=== PATIENT | female | born 1960 | race Caucasian/White ===

== ENCOUNTER 2016-07-18 10:42 | Inpatient (IN) | payer MEDICARE, OTHER ==
[~2016-07-18] VITALS: Ht 175.3 cm; Wt 82.8 kg
[2016-07-18] MEDS ORDERED: IPRATROPIUM 0.5MG/ALBUTEROL 2.5MG INH SOL UD 3ML (DUONEB)(J7620) As Ordered ONE (11:17)
[2016-07-18 11:19] LABS: ABG BASE EXCESS 7.4 (-2.0-2.0); ABG DEVICE NASAL CANN; ABG HCO3 37.3 MEQ/L (22.0-26.0); ABG PARTIAL PRESSURE O2 68.1 mmHg (75.0-100.0); ABG STANDARD HCO3 31.1 MEQ/L (22.0-26.0); ABG TOTAL CO2 39.7 MEQ/L (22.0-29.0); ABG pH (ARTERIAL) 7.302 UNITS (7.350-7.450)
[2016-07-18 11:23] LABS: ABG PARTIAL PRESSURE CO2 77.2 mmHg (35.0-45.0)
[2016-07-18] MEDS ORDERED: methylPREDNISolone INJ 125 MG/2 ML VIAL (J2930) As Ordered ONE (11:33)
[2016-07-18] MEDS ORDERED: LORazepam 2 MG/ML VIAL (J2060) As Ordered ONE (11:35)
--- NOTE | 2016-07-18 11:36 | REP ---
SINGLE VIEW CHEST: AP portable view of the chest is performed and compared to prior study of 01/04/2016. I see no acute infiltrate with no change since prior study. Heart is upper limits of normal in size. Mediastinal silhouette is unchanged. The visualized osseous structures appear intact. IMPRESSION: No acute infiltrate. Signed by Henrik Singh MD 07/18/2016 05:20 P
[2016-07-18 11:39] LABS: BASO # 0.1 K/mm3 (0.0-0.2); BASO % 0.7 % (0.0-1.0); EOS # 0.1 K/mm3 (0.0-0.50); EOS % 1.2 % (0.0-3.0); LARGE UNSTAINED CELL # 0.2 K/mm3 (0.0-0.4); LARGE UNSTAINED CELL % 1.6 % (0.0-4.0); LYMPH # 1.9 K/mm3 (1.5-4.5); LYMPH % 15.3 % (24.0-44.0); MEAN CORPUSCULAR HEMOGLOBIN 29.2 pg (27.0-33.0); MEAN CORPUSCULAR HGB CONC 32.4 g/dl (32.0-36.5); MEAN CORPUSCULAR VOLUME 90.1 fl (80.0-96.0); MONO # 0.8 K/mm3 (0.0-0.8); MONO % 7.1 % (0.0-5.0); NEUTROPHILS # 8.4 K/mm3 (1.8-7.7); PLATELET COUNT, AUTOMATED 232 k/mm3 (150-450); RED CELL DISTRIBUTION WIDTH 14.5 % (11.5-14.5); WHITE BLOOD COUNT 11.3 K/mm3 (4.0-10.0)
[2016-07-18 12:11] LABS: ANION GAP 1 MEQ/L (8-16); BLOOD UREA NITROGEN 18 MG/DL (7-18); CALCIUM LEVEL 9.9 MG/DL (8.5-10.1); CARBON DIOXIDE LEVEL 45 MEQ/L (21-32); CHLORIDE LEVEL 97 MEQ/L (98-107); CREATININE FOR GFR 0.53 MG/DL (0.55-1.02); GLOMERULAR FILTRATION RATE > 60.0 (>51); GLUCOSE, FASTING 90 MG/DL (70-105); POTASSIUM SERUM 3.8 MEQ/L (3.5-5.1); SODIUM LEVEL 143 MEQ/L (136-145)
[2016-07-18] MEDS ORDERED: ZONI50CA3 PO (12:30)
[2016-07-18] MEDS ORDERED: ADV250INH INH (12:30)
[2016-07-18] MEDS ORDERED: AZIT250T3 PO (12:30)
[2016-07-18] MEDS ORDERED: IPRASOL4 INH (12:30)
[2016-07-18] MEDS ORDERED: METH4PACK PO (12:30)
[2016-07-18] MEDS ORDERED: TRAM50TA2 PO (12:30)
[2016-07-18] MEDS ORDERED: GABA600T PO (12:30)
[2016-07-18] MEDS ORDERED: DILT120C PO (12:30)
[2016-07-18] MEDS ORDERED: CEFD1CAP8 PO (12:30)
[2016-07-18] MEDS ORDERED: LevoFLOXacin(LEVAQUIN)500 MG/100 ML BAG (J1956) As Ordered ONE ×2 (12:31→12:33)
[2016-07-18] MEDS ORDERED: ONDANSETRON 4MG/2ML VIAL (J2405) IV PRN (12:45)
[2016-07-18] MEDS ORDERED: IPRATROPIUM 0.5MG/ALBUTEROL 2.5MG INH SOL UD 3ML (DUONEB)(J7620) NEB PRN (12:45)
--- NOTE | 2016-07-18 13:36 | HPE ---
DATE OF ADMISSION: 07/18/2016 PRIMARY CARE PROVIDER: NEERAJ Burgess, [facility]. WINDOW ASSEMBLER: Dr. Ny CHIEF COMPLAINT: Increased shortness of breath, dyspnea on exertion. HISTORY OF PRESENT ILLNESS: 56-year-old female recently admitted and discharged from [facility] yesterday for similar symptoms, was placed on cefdinir and Zithromax as well as prednisone taper for her chronic obstructive pulmonary disease (COPD) exacerbation. She has an underlying history of COPD/emphysema which her daughter informs me is end-stage and she uses 2 liters of oxygen at home. She has had increasing shortness of breath, dyspnea on exertion for the last 7-10 days. The simplest tasks make her short of breath. She states just getting dressed or walking across the floor causes increased difficulty for her. She has had an intermittent productive cough with no blood. No fevers, chills or rigors. She has had some vague chest discomfort with no substernal chest pain. No nausea, vomiting, no diaphoresis. PAST MEDICAL HISTORY: 1. COPD/emphysema. 2. Gallstones 3. Gastroesophageal reflux disease (GERD). 4. Headaches. 5. Hypertension. 6. Nerve damage. PAST SURGICAL HISTORY: 1. Tonsillectomy. 2. Appendectomy. 3. Spinal fusion. 4. Hip replacement. 5. Hernia repair. 6. Hysterectomy. 7. Laminectomy. 8. Partial removal of small bowel. SOCIAL HISTORY: She quit smoking in March after being a pack to two pack a day smoker for several years. No alcohol. No recent travel. No sick contacts. FAMILY HISTORY: Noncontributory. ALLERGIES: No known drug allergies. HOME MEDICATIONS: Include: - home oxygen 2 liters per his cannula per minute - DuoNebs three to four times daily - prednisone 60 mg daily - gabapentin 600 mg daily Mediation reconciliation is pending with the clinical pharmacy manager currently. REVIEW OF SYSTEMS: CONSTITUTIONAL: She denies fevers, chills, or rigors. No change in appetite. HEENT: No headache, lightheadedness, dizziness, blurry vision, double vision or tinnitus. No difficulty with speech or swallow. PULMONARY: Increased shortness of breath, dyspnea on exertion, productive sputum but no hemoptysis. End-stage lung disease per the patient's family. CARDIOVASCULAR: She denies any substernal chest pain. No paroxysmal nocturnal dyspnea (PND), orthopnea, but she does have quite a bit of dyspnea on exertion. No prior history of congestive heart failure. GASTROINTESTINAL (GI): No nausea, vomiting, diarrhea. Bowel movements are regular. She denies hematochezia or melena. GENITOURINARY (): No dysuria, frequency or hematuria. MUSCULOSKELETAL: No muscle, joint pain, erythema or swelling. NEUROLOGIC: No paresthesias or paralysis. LYMPHATICS: No lumps, bumps, swelling in the neck, axilla or groin. No night sweats. No weight loss. ENDOCRINE: Negative for diabetes. Negative thyroid disorder. HEMATOLOGY: Negative for bleeding or bruising disorder. No prior history of venothromboembolism. ONCOLOGY: No given history of cancer. PSYCHIATRIC: No history of depression or anxiety. No history of audiovisual hallucinations. 10-point review of systems complete. Pertinent positives are listed. PHYSICAL EXAMINATION: Temperature is 96.6, respiratory rate is 28, pulse is 111, blood pressure is 148/96, SpO2 is currently 92% on BiPAP. HEENT: Head is atraumatic, normocephalic. Eyes pupils equal, round and reactive to light and accommodation. Throat clear. Mucosal membranes moist. NECK: Supple with no JVD. No carotid bruits. No thyromegaly. LUNGS: Diminished breath sounds bilaterally. No rhonchi. Intermittent wheeze. Does appear to be slightly worse on the left. HEART: Regular rate and rhythm. ABDOMEN: Soft, obese, nontender. EXTREMITIES: No edema. No calf tenderness. NEURO: Cranial nerves II through XII grossly intact. No motor sensory deficits noted. LABS AND DIAGNOSTICS: Chest x-ray - lung queen appear to be clear, hyperinflated. No cardiomegaly. No signs of infiltrate or congestion. 12 lead EKG sinus tach. No acute ST-T wave abnormalities. White count is 11.3, hemoglobin 15.3, platelets 232. Sodium 143, potassium 3.8, chloride 97, bicarb 45, anion gap 1, BUN is 18, creatinine 0.53, glucose is 90, lactic acid 0.9. CK is 42, CK-MB 3.9. Troponin I is less than 0.02. BNP is 49.6. Blood gas shows a pH 7.302, pCO2 77.2, pO2 is 68.1. Blood cultures are pending times two. IMPRESSION: Ms. Laparr is a pleasant 56-year-old female with acute on chronic hypoxic respiratory failure with underlying history of COPD/emphysema and is oxygen dependent at home. She will need to be admitted to the intensive care unit (ICU) on BiPAP and telemetry. I did speak to Dr. Hendricks who is kind enough to consult on BiPAP management and will need to try to obtain records from Dr. Ny. PROBLEM LIST: 1. Acute on chronic hypoxic respiratory failure. 2. COPD exacerbation, oxygen dependent at home. 3. Hypertension. 4. GERD. 5. Neuropathy. PLAN: Admit to ICU on telemetry and BiPAP. Per Dr. Raj Rodriguez, Levaquin and DuoNebs. Continue on her home medications. Will switch her antibiotics to Levaquin. Request the office notes from Ander Mena and Dr. Ny's office. Deep vein thrombosis (DVT) prophylaxis on heparin and request Dr. Hendricks to see the patient. Prognosis is guarded at this point. I did have a brief discussion regarding advance directives. She currently wishes to be a FULL CODE.
--- NOTE | 2016-07-18 15:05 | EDDOCDS ---
Nurse's Notes [facility] Name: Halima Atkins Age: 56 yrs Sex: Female : 1960 Arrival Date: 07/18/2016 Time: 10:42 Bed 4 Private MD: ELIZABETH CAM Diagnosis: Respiratory failure, unspecified with hypercapnia Presentation: 07/18 10:48 Presenting complaint: Patient states: Chest pain and SOB began on 07/09/16 [address] discharged yesterday. Adult Sepsis Screening: The patient does not have new or worsening altered mentation. Patient has a respiratory rate of greater than or equal to 22 (1 point). Systolic blood pressure is greater than 100. Patient has a qSOFA score of 0- Negative Sepsis Screen. Suicide/Homicide risk assessment- the patient denies having any suicidal and/or homicidal ideations and does not present with any other emotional, behavioral or mental health complaints. Status: Patient is not a imaging services director or dependent. Transition of care: patient was not received from another setting of care. 10:48 Method Of Arrival: Walkin/Carried/Asstd [facility] 10:48 Acuity: MADALYN Level 2 [facility] Triage Assessment: 10:51 General: Appears distressed, Behavior is appropriate for age, cooperative. Pain: b1 Location: head and chest Pain currently is 10 out of 10 on a pain scale. HIV screening NA for this visit Offered previously. Respiratory: Onset: The symptoms/episode began/occurred gradually, Respiratory effort is labored. Historical: - Allergies: no known allergies; - Home Meds: 1. 2L NC 2. DuoNeb 0.5 mg-3 mg(2.5 mg base)/3 mL Inhl nebu 3 mL 4 times per day 3. Prednisone 60 mg Oral once daily 4. gabapentin 600 mg Oral tab 1 tab daily - PMHx: COPD; Emphysema; Gallstones; GERD; Headaches; Hypertension; nerve damage; - PSHx: Tonsillectomy; Appendectomy; Spinal Fusion; Hip Replacement; Hernia repair; Hysterectomy; Laminectomy; Partial Removal of Small Bowel; - Social history: Smoking status: Patient states former smoker of tobacco. No barriers to communication noted, The patient speaks fluent Vietnamese, Speaks appropriately for age. - Family history: No immediate family members are acutely ill. - : The pt / caregiver states he / she is not on anticoagulants. Home medication list is obtained from the patient. - Exposure Risk Screening:: None identified. Screenin:28 Screening information is obtained from the patient. Fall risk: No risks identified. hs1 Assistance ADL's: requires no assistance with activities of daily living. Abuse/DV Screen: The patient / caregiver reports he/she is: not in a situation that causes fear, pain or injury. Nutritional screening: No deficits noted. Advance Directives: There is no active DNR order. home support is adequate. Assessment: 11:25 General: Appears in no apparent distress, Behavior is anxious. Pain: Denies pain. hs1 Cardiovascular: Rhythm is sinus rhythm No ectopy. Cardiovascular: Capillary refill is sluggish Chest pain is denied. Respiratory: Airway is patent Respiratory effort is labored, respiratory in to assist patient onto BiPap. Breath sounds are diminished bilaterally. Breath sounds with wheezes bilaterally. Derm: Skin is normal. 12:25 General: Appears in no apparent distress, Behavior is appropriate for age, cooperative, hs1 Pt resting Zithromax administered at present per order. Pt complaining of slight headache 09/21 and MD [facility] aware. . 13:20 General: Appears in no apparent distress, Behavior is appropriate for age, cooperative, hs1 pt asking what happened to her and she was told that she was hypercarbic and that's why she doesn't remember much when she first got here. Pt aware of recent transfer to floor. . 14:37 General: Appears in no apparent distress, comfortable, Behavior is appropriate for age, hs1 cooperative, Pt is asking to use restroom before admission to floor. Pt being assisted to bedside commode by aide. Daughter present at bedside and no other needs noted. . 15:00 General: Appears Pt refusing BIPAP at present until heading upstairs. Pt accomodated hs1 with bedpan and then commode and then patient took mask off and refused mask until ICU. Pt asking for something to drink and medication for headache. . Vital Signs: 10:44 BP 148 / 96; Pulse 111; Resp 28 S; Temp 96.6; Pulse Ox 88% on 3 lpm NC; Weight 88.45 kg dd6 (R); Height 5 ft. 9 in. (175.26 cm) (R); Pain 7/10; 11:18 BP 138 / 96 (auto/); hs1 11:19 Pulse 100 MON; Pulse Ox 94% ; hs1 13:54 BP 120 / 77 (auto/); hs1 13:54 Pulse 96 MON; Pulse Ox 94% on BiPAP; hs1 14:24 BP 140 / 102 (auto/); hs1 14:24 Pulse 96 MON; Resp 22; Temp 98.9(T); Pulse Ox 94% ; Pain 3/10; hs1 10:44 Body Mass Index 28.80 (88.45 kg, 175.26 cm) dd6 Vitals: 10:44 Log In Time: July 18, 2016 at 10:42. dd6 ED Course: 10:43 Patient visited by Vincenzo Plaza PCA. dd6 10:43 NO PRIMARY PHYSICIAN, . is Private Physician. dd6 10:43 Patient moved to Waiting dd6 10:44 BODY, ELIZABETH is Private Physician. dd6 10:48 Patient visited by Andrey Vazquez, CRYSTAL. mlb1 10:49 Triage Initiated mlb1 10:56 Patient moved to 19 mlb1 11:00 Brittanie Myles MD is Attending Physician. sd1 11:00 Patient visited by Brittanie Myles MD. sd1 11:12 Patient moved to 4 jlf 11:17 -Arterial Blood Gas Sent. kt1 11:21 Patient visited by Savita Turner PCA. jlf 11:21 EKG done. (by ED staff). Reviewed by Brittanie Myles MD. jlf 11:22 Patient visited by Savita Turner PCA. jlf 11:33 Inserted saline lock: 18 gauge in left antecubital area and blood collected. The mb9 patient tolerated the procedure well. 11:53 Patient visited by Savita Turner PCA. jlf 11:53 Chest, 1 View Returned. EDMS 12:17 Patient visited by Savita Turner PCA. jlf 12:22 Karlos Madison DO is Hospitalizing Provider. sd1 12:28 The patient / caregiver is instructed regarding the plan of care and ED course. hs1 12:32 Written Provider Order was scanned into Snapstream and attached to record. lbd 12:46 BLOOD CULTURES Sent. hs1 14:05 [facility] [place] [facility] Payment Agreement was scanned into Snapstream and attached to record. mm15 14:39 No procedures done that require assistance. hs1 Administered Medications: 11:17 Drug: Albuterol-Ipratropium 1 neb [ipratropium-albuterol 0.5 mg-3 mg(2.5 mg base)/3 mL kt1 nebulization soln (1 neb)] Route: Nebulizer; 11:22 Follow up: Response: Nebulizer completed kt1 11:40 Drug: Solu-MEDROL 125 mg [Solu-Medrol 500 mg intravenous solution (125 mg)] Route: IVP; hs1 Site: left antecubital; 11:40 Drug: LORazepam 1 mg [lorazepam 2 mg/mL injection solution (0.5 mL)] Route: IVP; Site: hs1 left antecubital; 12:15 Drug: Albuterol-Ipratropium 1 neb [ipratropium-albuterol 0.5 mg-3 mg(2.5 mg base)/3 mL kt1 nebulization soln (1 neb)] Route: Nebulizer; 12:46 Drug: levofloxacin 500 mg [levofloxacin 500 mg/100 mL in 5 % dextrose intravenous hs1 piggyback] Route: IVPB; Infused Over: 60 mins; Site: left antecubital; 15:02 Follow up: IV Status: Completed infusion; IV Intake: 100ml hs1 Intake: 15:02 IV: 100.00ml; Total: 100.00ml. hs1 RT: 11:17 ABG's drawn from right radial artery pressure held for 5 minutes no bleeding noted kt1 pressure bandage applied specimen sent pt. tolerated well. 11:30 BIPAP: Inspiratory Pressure: 12, Expiratory Pressure: 6, Backup Rate: 10, FiO2: 40%, kt1 Full face fask. 14:53 BIPAP:. O2 via Pt refusing bipap at this time until she goes up to ICU. Reassurance sd7 given on importance of bipap and reason for bipap. Pt adament that she is not wearing the mask right now. Pt placed on 6LNC at this time. Order Results: Lab Order: -Arterial Blood Gas; SPEC'M 07/18/16 11:09 Test: ABG pH (ARTERIAL); Value: 7.302; Range: 7.350-7.450; Abnormal: Below low normal; Units: UNITS; Status: F Test: ABG PARTIAL PRESSURE CO2; Value: 77.2; Range: 35.0-45.0; Abnormal: Above upper panic limits; Units: mmHg; Status: F Test: ABG PARTIAL PRESSURE O2; Value: 68.1; Range: 75.0-100.0; Abnormal: Below low normal; Units: mmHg; Status: F Test: ABG TOTAL CO2; Value: 39.7; Range: 22.0-29.0; Abnormal: Above high normal; Units: MEQ/L; Status: F Test: ABG HCO3; Value: 37.3; Range: 22.0-26.0; Abnormal: Above high normal; Units: MEQ/L; Status: F Test: ABG BASE EXCESS; Value: 7.4; Range: -2.0-2.0; Abnormal: Above high normal; Status: F Test: ABG STANDARD HCO3; Value: 31.1; Range: 22.0-26.0; Abnormal: Above high normal; Units: MEQ/L; Status: F Test: ABG O2 SATURATION; Value: 93.6; Range: 95.0-99.0; Abnormal: Below low normal; Units: %; Status: F Test: ABG DEVICE; Value: NASAL TON; Status: F Lab Order: B-Type Natiuretic Peptide; SPEC'M 07/18/16 11:09 Test: BRAIN NATRIURETIC PEPTIDE; Value: 49.6; Range: <100; Units: PG/ML; Status: F Lab Order: Basic Metabolic Profile; SPEC'07/18/16 11:09 Test: GLUCOSE, FASTING; Value: 90; Range: 70-105; Units: MG/DL; Status: F Test: BLOOD UREA NITROGEN; Value: 18; Range: 7-18; Units: MG/DL; Status: F Test: CREATININE FOR GFR; Value: 0.53; Range: 0.55-1.02; Abnormal: Below low normal; Units: MG/DL; Status: F Test: GLOMERULAR FILTRATION RATE; Value: > 60.0; Range: >51; Status: F Test: SODIUM LEVEL; Value: 143; Range: 136-145; Units: MEQ/L; Status: F Test: POTASSIUM SERUM; Value: 3.8; Range: 3.5-5.1; Units: MEQ/L; Status: F Test: CHLORIDE LEVEL; Value: 97; Range: 98-107; Abnormal: Below low normal; Units: MEQ/L; Status: F Test: CARBON DIOXIDE LEVEL; Value: 45; Range: 21-32; Abnormal: Above high normal; Units: MEQ/L; Status: F Test: ANION GAP; Value: 1; Range: 8-16; Abnormal: Below low normal; Units: MEQ/L; Status: F Test: CALCIUM LEVEL; Value: 9.9; Range: 8.5-10.1; Units: MG/DL; Status: F Test Note: ; Units are mL/min/1.73 m2 Chronic Kidney Disease Staging per NKF: Stage I & II GFR >=60 Normal to Mildly Decreased Stage III GFR 30-59 Moderately Decreased Stage IV GFR 15-29 Severely Decreased Stage V GFR <15 Very Little GFR Left ESRD GFR <15 on RANCH SUPERVISOR Lab Order: CBC with Diff; SPEC'M 07/18/16 11:09 Test: WHITE BLOOD COUNT; Value: 11.3; Range: 4.0-10.0; Abnormal: Above high normal; Units: K/mm3; Status: F Test: RED BLOOD COUNT; Value: 5.26; Range: 4.00-5.40; Units: M/mm3; Status: F Test: HEMOGLOBIN; Value: 15.3; Range: 12.0-16.0; Units: g/dl; Status: F Test: HEMATOCRIT; Value: 47.4; Range: 36.0-47.0; Abnormal: Above high normal; Units: %; Status: F Test: MEAN CORPUSCULAR VOLUME; Value: 90.1; Range: 80.0-96.0; Units: fl; Status: F Test: MEAN CORPUSCULAR HEMOGLOBIN; Value: 29.2; Range: 27.0-33.0; Units: pg; Status: F Test: MEAN CORPUSCULAR HGB CONC; Value: 32.4; Range: 32.0-36.5; Units: g/dl; Status: F Test: RED CELL DISTRIBUTION WIDTH; Value: 14.5; Range: 11.5-14.5; Units: %; Status: F Test: PLATELET COUNT, AUTOMATED; Value: 232; Range: 150-450; Units: k/mm3; Status: F Test: NEUTROPHILS %; Value: 74.0; Range: 36.0-66.0; Abnormal: Above high normal; Units: %; Status: F Test: LYMPH %; Value: 15.3; Range: 24.0-44.0; Abnormal: Below low normal; Units: %; Status: F Test: MONO %; Value: 7.1; Range: 0.0-5.0; Abnormal: Above high normal; Units: %; Status: F Test: EOS %; Value: 1.2; Range: 0.0-3.0; Units: %; Status: F Test: BASO %; Value: 0.7; Range: 0.0-1.0; Units: %; Status: F Test: LARGE UNSTAINED CELL %; Value: 1.6; Range: 0.0-4.0; Units: %; Status: F Test: NEUTROPHILS #; Value: 8.4; Range: 1.8-7.7; Abnormal: Above high normal; Units: K/mm3; Status: F Test: LYMPH #; Value: 1.9; Range: 1.5-4.5; Units: K/mm3; Status: F Test: MONO #; Value: 0.8; Range: 0.0-0.8; Units: K/mm3; Status: F Test: EOS #; Value: 0.1; Range: 0.0-0.50; Units: K/mm3; Status: F Test: BASO #; Value: 0.1; Range: 0.0-0.2; Units: K/mm3; Status: F Test: LARGE UNSTAINED CELL #; Value: 0.2; Range: 0.0-0.4; Units: K/mm3; Status: F Lab Order: Cardiac Injury Profile; SPEC'M 07/18/16 11:09 Test: CPK CREATINE PHOSPHOKINASE; Value: 42; Range: 26-192; Units: U/L; Status: F Test: CK-MB VALUE MASS; Value: 3.9; Range: 0.0-3.6; Abnormal: Above high normal; Units: NG/ML; Status: F Test: MB/CK RELATIVE INDEX; Value: 9.28; Range: < OR =4; Abnormal: Above high normal; Status: F Test Note: ; DIAGNOSIS CRITERIA MMB ng/ml Relative Index (RI) NON-AMI < or = 5 N/A S[place]ONE > 5 < or = 4 AMI > 5 > 4 Lab Order: Troponin; SPEC'M 07/18/16 11:09 Test: TROPONIN I; Value: < 0.02; Range: < 0.10; Units: NG/ML; Status: F Test Note: ; Troponin I Reference Interval for Siemens DataRose LOCI: 99th Percentile= 0.00-0.045 ng/ml Risk Stratification: <= 0.10 ng/ml Decreased Risk for Adverse Clinical Events. 0.10-1.50 ng/ml Increased Risk for Adverse Clinical Events. Evaluation of additional criterion and/or repeat testing in 2-6 hours is suggested to rule out myocardial damage. >= 1.50 ng/ml Indicative of Myocardial Injury. Lab Order: Lactic Acid (Singh tube on ice); SPEC'M 07/18/16 11:09 Test: LACTIC ACID LEVEL, LACTATE; Value: 0.9; Range: 0.4-2.0; Units: MMOL/L; Status: F Radiology Order: Chest, 1 View Test: Chest, 1 View REASON FOR EXAMINATION: Shortness of Breath; SINGLE VIEW CHEST:; ; AP portable view of the chest is performed and compared to prior study of; 01/04/2016. I see no acute infiltrate with no change since prior study. Heart; is upper limits of normal in size. Mediastinal silhouette is unchanged. The; visualized osseous structures appear intact.; ; IMPRESSION:; No acute infiltrate.; ; Unreviewed; Outcome: 12:22 Decision to Hospitalize by Provider. sd1 15:01 Discharge Assessment: Patient awake, alert and oriented x 3. No cognitive and/or hs1 functional deficits noted. Patient verbalized understanding of disposition instructions. patient administered narcotics - yes. Patient was admitted to the hospital or transferred to another facility. The following High Risk Discharge criteria are identified: None. Admitted to ICU accompanied by nurse, accompanied by tech, family with patient, via stretcher, with oxygen, on monitor, with chart. critical. CT Study completed. Property sent home with patient. 15:05 Patient left the ED. ck1 Signatures: Dispatcher [employer] EDBrittanie Cruz MD MD sd1 Monica Vences, Pricing Specialist Unit lbd Andrey Vazquez RN RN mlb1 Bernadette Stout kt1 Sadia Mora RN RN ck1 Vincenzo Plaza, POST PARTUM NURSE POST PARTUM NURSE dd6 Shelia Taylor RN RN hs1 Patricia March mm15 Savita Turner, POST PARTUM NURSE POST PARTUM NURSE jlf Rasheeda Soto,RT RT sd7 Andrey Florentino,RN RN mb9 Corrections: (The following items were deleted from the chart) 11:06 10:48 Acuity: MADALYN Level 3 mlb1 mlb1 MTDD
--- NOTE | 2016-07-18 15:05 | EDDOCDS ---
Physician Documentation [facility] Name: Halima Atkins Age: 56 yrs Sex: Female : 1960 Arrival Date: 07/18/2016 Time: 10:42 Bed 4 Private MD: ELIZABETH CAM Disposition: 07/18/16 12:22 Hospitalization ordered by Karlos Madison for Inpatient Admission. Preliminary diagnosis is Respiratory failure, unspecified with hypercapnia. - Bed requested for M ICU. - Status is Inpatient Admission. ck1 - Condition is Stable. - Problem is an acute exacerbation. - Symptoms are unchanged. Historical: - Allergies: no known allergies; - Home Meds: 1. 2L NC 2. DuoNeb 0.5 mg-3 mg(2.5 mg base)/3 mL Inhl nebu 3 mL 4 times per day 3. Prednisone 60 mg Oral once daily 4. gabapentin 600 mg Oral tab 1 tab daily - PMHx: COPD; Emphysema; Gallstones; GERD; Headaches; Hypertension; nerve damage; - PSHx: Tonsillectomy; Appendectomy; Spinal Fusion; Hip Replacement; Hernia repair; Hysterectomy; Laminectomy; Partial Removal of Small Bowel; - Social history: Smoking status: Patient states former smoker of tobacco. No barriers to communication noted, The patient speaks fluent Nepali, Speaks appropriately for age. - Family history: No immediate family members are acutely ill. - : The pt / caregiver states he / she is not on anticoagulants. Home medication list is obtained from the patient. - Exposure Risk Screening:: None identified. Vital Signs: 07/18 10:44 BP 148 / 96; Pulse 111; Resp 28 S; Temp 96.6; Pulse Ox 88% on 3 lpm NC; Weight 88.45 kg dd6 / 195 lbs (R); Height 5 ft. 9 in. (175.26 cm) (R); Pain 7/10; 11:18 BP 138 / 96 (auto/); hs1 11:19 Pulse 100 MON; Pulse Ox 94% ; hs1 13:54 BP 120 / 77 (auto/); hs1 13:54 Pulse 96 MON; Pulse Ox 94% on BiPAP; hs1 14:24 BP 140 / 102 (auto/); hs1 14:24 Pulse 96 MON; Resp 22; Temp 98.9(T); Pulse Ox 94% ; Pain 3/10; hs1 10:44 Body Mass Index 28.80 (88.45 kg, 175.26 cm) dd6 MDM: 10:58 -Blood Culture (Adults Only), peripheral from different site, or from device/port/PICC sd1 etc. if present ordered. 10:58 Call Respiratory ordered. sd1 10:58 Technical Assistant/Pulse Ox/q 15 min VS ordered. sd1 10:58 IV Saline Lock ordered. sd1 10:58 Oxygen at 4L/Min NC or Home dosage ordered. sd1 10:58 Rhythm Strip to chart ordered. sd1 11:00 -Arterial Blood Gas Ordered. EDMS 11:00 B-Type Natiuretic Peptide Ordered. EDMS 11:00 Basic Metabolic Profile Ordered. EDMS 11:00 CBC with Diff Ordered. EDMS 11:00 Cardiac Injury Profile Ordered. EDMS 11:00 Troponin Ordered. EDMS 11:00 Lactic Acid (Singh tube on ice) Ordered. EDMS 11:00 -Blood Culture Ordered. EDMS 11:00 Chest, 1 View Ordered. EDMS 11:00 ECG WITH READING ER PHYS+CARDIAG ordered. EDMS 11:05 Call Respiratory complete. lbd 11:05 -Blood Culture (Adults Only), peripheral from different site, or from device/port/PICC lbd etc. if present complete. 11:08 Albuterol-Ipratropium 1 neb Nebulizer every 20 minutes x3 ordered. sd1 11:08 Solu-MEDROL 125 mg IVP once ordered. sd1 11:18 BLOOD CULTURES Ordered. EDMS 11:28 BED REQUEST+ADM ordered. EDMS 11:34 LORazepam 1 mg IVP once ordered. sd1 11:40 LORazepam 1 mg IVP once ordered. hs1 11:49 -Arterial Blood Gas Reviewed. sd1 11:49 CBC with Diff Reviewed. sd1 12:15 Basic Metabolic Profile Reviewed. sd1 12:15 Cardiac Injury Profile Reviewed. sd1 12:15 B-Type Natiuretic Peptide Reviewed. sd1 12:15 Troponin Reviewed. sd1 12:15 Lactic Acid (Singh tube on ice) Reviewed. sd1 12:15 Chest, 1 View Reviewed. sd1 12:32 Written Provider Order was scanned into [employer] and attached to record. lbd 12:43 VENTILATOR SETTINGS ordered. EDMS 12:43 PORTABLE CHEST X-RAY Ordered. EDMS 12:43 PORTABLE CHEST X-RAY Ordered. EDMS 12:43 PORTABLE CHEST X-RAY Ordered. EDMS 12:44 PORTABLE CHEST X-RAY Ordered. EDMS 12:44 PORTABLE CHEST X-RAY Ordered. EDMS 12:44 PORTABLE CHEST X-RAY Ordered. EDMS 12:44 PORTABLE CHEST X-RAY Ordered. EDMS 12:44 PORTABLE CHEST X-RAY Ordered. EDMS 12:45 Admission / Observation Status ordered. EDMS 12:45 NPO DIET ordered. EDMS 12:46 levofloxacin 500 mg IVPB once over 60 mins ordered. hs1 13:05 BIPAP INPATIENT ordered. EDMS 14:05 Financial registration complete. mm15 14:05 [facility] Payment Agreement was scanned into [employer] and attached to record. mm15 Administered Medications: 11:17 Drug: Albuterol-Ipratropium 1 neb [ipratropium-albuterol 0.5 mg-3 mg(2.5 mg base)/3 mL kt1 nebulization soln (1 neb)] Route: Nebulizer; 11:22 Follow up: Response: Nebulizer completed kt1 11:40 Drug: Solu-MEDROL 125 mg [Solu-Medrol 500 mg intravenous solution (125 mg)] Route: IVP; hs1 Site: left antecubital; 11:40 Drug: LORazepam 1 mg [lorazepam 2 mg/mL injection solution (0.5 mL)] Route: IVP; Site: hs1 left antecubital; 12:15 Drug: Albuterol-Ipratropium 1 neb [ipratropium-albuterol 0.5 mg-3 mg(2.5 mg base)/3 mL kt1 nebulization soln (1 neb)] Route: Nebulizer; 12:46 Drug: levofloxacin 500 mg [levofloxacin 500 mg/100 mL in 5 % dextrose intravenous hs1 piggyback] Route: IVPB; Infused Over: 60 mins; Site: left antecubital; 15:02 Follow up: IV Status: Completed infusion; IV Intake: 100ml hs1 Signatures: Dispatcher [employer] EDMS Brittanie Myles MD MD sd1 Monica Vences, Umbrella Frame Maker Unit lbd Andrey Vazquez RN RN mlb1 Sadia Mora RN RN ck1 Shelia Taylor RN RN hs1 Patricia March mm15 Savita Turner, PRESSURE TESTING TECHNICIAN PRESSURE TESTING TECHNICIAN jlf Bernadette Stout kt1 The chart was reviewed and I authenticate all verbal orders and agree with the evaluation and treatment provided.Attachments: 12:32 Written Provider Order lbd 14:05 [facility] Payment Agreement mm15 MTDD
[2016-07-18 15:30] VITALS: BP 146/97
[2016-07-18 16:00] VITALS: BP 130/81
[2016-07-18] MEDS: IPRATROPIUM 0.5MG/ALBUTEROL 2.5MG INH SOL UD 3ML (DUONEB)(J7620) NEB SCH ×2 (16:00→23:34)
[2016-07-18] MEDS: CHLORHEXIDINE GLUCONATE 0.12 % 15ML UDC (PERIDEX ORAL RINSE) MT SCH ×2 (16:37→21:00)
[2016-07-18] MEDS: ZONISAMIDE 50 MG CAP (ZONEGRAN) PO SCH ×2 (16:38→21:21)
[2016-07-18] MEDS: HEPARIN SOD (PORCINE) 5000 UNITS/ML VIAL SC SCH ×2 (16:40→21:22)
[2016-07-18] MEDS: DOCUSATE SODIUM 100 MG CAP PO SCH ×2 (16:40→21:21)
[2016-07-18] MEDS: traMADol 50 MG TAB PO PRN (16:40)
[2016-07-18 18:09] LABS: ABG BASE EXCESS 8.3 (-2.0-2.0); ABG PARTIAL PRESSURE O2 71.9 mmHg (75.0-100.0); ABG TOTAL CO2 40.3 MEQ/L (22.0-29.0); ABG pH (ARTERIAL) 7.317 UNITS (7.350-7.450)
[2016-07-18] MEDS: ADVAIR DISKUS 250/50 INH PWD INH SCH (19:34)
[2016-07-18 20:00] VITALS: BP 133/91
--- NOTE | 2016-07-18 20:00 | ECGEPIP ---
Stationary ECG Study [facility] - ED Test Date: 2016-07-18 Pat Name: JOHNATHON PICKETT Department: Room: - Gender: F Assistant Community Director: tiffanie : 1960 Requested By: Brittanie Myles Order Number: [id number] Reading MD: Brittanie Myles Measurements Intervals [place] Rate: 103 P: 74 WA: 149 QRS: 73 QRSD: 100 T: 50 QT: 316 QTc: 416 Interpretive Statements SINUS TACHYCARDIA ABNORMAL RHYTHM ECG NSTTW ABNORMALITY SIMILAR 05/30/16 Electronically Signed On 07-18-2016 20:00:18 EST by Brittanie Myles
[2016-07-18] MEDS: GABAPENTIN 300 MG CAP PO SCH (21:22)
[2016-07-18] MEDS: ACETAMINOPHEN TAB 650MG DOSE (2X325MG) PO PRN (21:23)
[2016-07-18 22:00] VITALS: BP 120/73
[2016-07-19] VITALS (7 sets, daily range): BP systolic 116–139; BP diastolic 66–98
[2016-07-19] MEDS: methylPREDNISolone INJ 125 MG/2 ML VIAL (J2930) IV SCH ×3 (00:07→23:07)
[2016-07-19] MEDS: traMADol 50 MG TAB PO PRN ×3 (00:08→20:09)
[2016-07-19] MEDS: ACETAMINOPHEN TAB 650MG DOSE (2X325MG) PO PRN ×2 (04:07→08:25)
[2016-07-19] MEDS: HEPARIN SOD (PORCINE) 5000 UNITS/ML VIAL SC SCH ×3 (05:10→23:08)
[2016-07-19 05:28] LABS: MEAN CORPUSCULAR HEMOGLOBIN 29.4 pg (27.0-33.0); MEAN CORPUSCULAR HGB CONC 32.4 g/dl (32.0-36.5); MEAN CORPUSCULAR VOLUME 90.8 fl (80.0-96.0); RED CELL DISTRIBUTION WIDTH 13.4 % (11.5-14.5); WHITE BLOOD COUNT 7.4 K/mm3 (4.0-10.0)
[2016-07-19 05:38] LABS: ANION GAP 4 MEQ/L (8-16); BLOOD UREA NITROGEN 22 MG/DL (7-18); CALCIUM LEVEL 9.2 MG/DL (8.5-10.1); CARBON DIOXIDE LEVEL 41 MEQ/L (21-32); CHLORIDE LEVEL 97 MEQ/L (98-107); CREATININE FOR GFR 0.66 MG/DL (0.55-1.02); GLOMERULAR FILTRATION RATE > 60.0 (>51); GLUCOSE, FASTING 134 MG/DL (70-105); POTASSIUM SERUM 4.7 MEQ/L (3.5-5.1); SODIUM LEVEL 142 MEQ/L (136-145)
[2016-07-19 05:49] LABS: ABG BASE EXCESS 2.9 (-2.0-2.0); ABG HCO3 31.3 MEQ/L (22.0-26.0); ABG PARTIAL PRESSURE O2 106.1 mmHg (75.0-100.0); ABG TOTAL CO2 33.3 MEQ/L (22.0-29.0)
[2016-07-19 05:52] LABS: ABG PARTIAL PRESSURE CO2 65.1 mmHg (35.0-45.0)
--- NOTE | 2016-07-19 06:09 | CCN ---
DATE OF VISIT: 07/18/2016 NOTE: Asked by Dr. Madison to evaluate Ms. Atkins for acute on chronic respiratory failure. Ms. Atkins is a 56-year-old white female with known very severe chronic pulmonary obstructive disease (COPD) with hypoxemia secondary to emphysema, hypothyroidism, previous history of polycythemia, and still ongoing intermittent tobacco usage, who had presented to [facility] several days ago for increasing shortness of breath. She had been treated with systemic cortical steroids, cefdinir, and azithromycin. Apparently, she either was discharged or left against medical advice (AMA). Per her daughter, approximately 12 hours after that she insisted that her daughter drive her an hour and a half to [facility], because it was the hospital that her darkroom technician, Dr. Ny, practices at. Ms. Atkins confirms to me that she has had increasing shortness of breath with intermittent productive cough. No hemoptysis. No fever, chills, or drenching night sweats. No chest pain. No abdominal pain. No nausea, vomiting, or diaphoresis. She was found in the emergency room to have acute on chronic respiratory failure with a pH of 7.3 and a pCO2 of 77. I do not know how much oxygen that was drawn on. She was started on noninvasive mechanical ventilation and was admitted to the intensive care unit. When I saw her in the intensive care unit, she confirmed the history as noted above. She is very anxious, wants to eat, and is adamant that the noninvasive mechanical ventilator be removed. She was insistent that she just be placed on oxygen. A repeat arterial blood gas was then done, which showed pH of 7.32, pCO2 of 76 with a pO2 of 72. Given that her mental status seemed to be at baseline and that she had essentially corrected her acidemia, the noninvasive mechanical ventilator was removed at that time, and she was placed on oxygen. In reviewing her previous outpatient clinic notes, she has been noted to be noncompliant with medications, and it is not known what she was taking prior to being admitted to the hospital. Per the notes, she stated, that some of this was because of cost, though per her daughter, when her a year ago, she was left "well off," and that is not an issue anymore. MEDICATIONS UPON LEAVING AGAINST MEDICAL ADVICE FROM [facility]: - Combivent nebulization every 4 hours as needed - azithromycin 250 mg by mouth daily - cefdinir 300 mg by mouth twice a day - diltiazem 120 mg by mouth daily - gabapentin 600 mg by mouth nightly - Medrol pack - Advair 250/50, one puff twice a day - tramadol 50 mg by mouth four times a day as needed - zonisamide 50 mg by mouth twice a day Per review of the outpatient records, she is standingly on prednisone 10 mg by mouth daily. ALLERGIES: No known drug allergies. PHYSICAL EXAMINATION: GENERAL: Ms. Atkins is sitting in bed with a full-face mask in place in no acute distress. She is able to complete full sentences. VITAL SIGNS: Temperature 96.1 with a temperature maximum (T-max) of 98.4, pulse 103, blood pressure 130/81, respiratory rate 20, SpO2 of 93 on a noninvasive mechanical ventilation with an FiO2 bleed-in of 0.4. HEENT: Anicteric. Pupils equal, round, reactive to light. Nares and oropharynx not examined secondary to full-face mask. NECK: Supple without jugular venous distention (JVD), without thyromegaly or masses. Trachea is midline. LYMPHATICS: Without cervical or supraclavicular lymphadenopathy. LUNGS: Symmetric excursion. Generalized diminished air entry. No wheeze, rhonchi, or crackle on tidal excursion. Prolonged expiratory phase. No accessory muscle usage or retractions. Hyperresonance to percussion. CARDIOVASCULAR: Tachycardic, regular rhythm, normal S1, S2. No murmur, rub, gallop appreciated. ABDOMEN: Normoactive bowel sounds. Soft, nondistended. No hepatosplenomegaly or masses appreciated. EXTREMITIES: Warm and well perfused without clubbing, cyanosis, or edema. Palpable pedal pulses bilaterally. LABORATORY DATA: Admission ABG was 7.30/77/68 with a measured saturation 94%. I do not know how much oxygen that was drawn on. Arterial blood gas later was 7.32/76/72 with a measured saturation of 94%. This was drawn on noninvasive mechanical ventilation with an EPAP of 6, IPAP of 12, and FiO2 of 0.4. The base excess was 8.3. Chemistries on admission hemoglobin of 15.3, hematocrit 47.4, platelet count 232,000, white blood cell count 11,300 with a differential of 74% neutrophils, 15% lymphocytes, and 7% monocytes. Chemistries showed a sodium of 143, potassium 3.8, chloride 97, bicarbonate 45, anion gap 1, BUN 18, creatinine 0.5, glucose 90, lactic acid 0.9, calcium 9.9. CK 42, CK-MB 3.9, troponin I of 0.02, and BNP 49.6. I reviewed her chest x-ray as well as the report. That showed normal-appearing cardiac silhouette and pulmonary vascular shadows. Normal-appearing mediastinal and hilar regions. No acute infiltrates. IMPRESSION: 1. Acute and chronic hypercapnic and hypoxemic respiratory failure leading to noninvasive mechanical ventilation. By her history, this appears likely to be secondary to acute bronchitis, possibly of viral origin. 2. Chronic pulmonary obstructive disease (COPD), very severe with hypercapnia and hypoxemia, felt secondary to mcdonald lobar emphysema. Spirometry from 04/15/2016 showed an FEV1 of 0.6, (19%) and an FVC 1.41 (36%). FEV1/FEC ratio is reduced to 43%. 3. Mcdonald lobar emphysema. 4. Tobacco usage, intermittent. 5. Deep venous thrombosis (DVT) prophylaxis in place with subcutaneous heparin. Stress ulcer prophylaxis not currently ordered. RECOMMENDATIONS: 1. As noted above, I feel we can discontinue the noninvasive mechanical ventilation at the present time. 2. Agree with systemic corticosteroids. 3. Agree with antibiotic choice of Levaquin, though, again, this may be viral. 4. She has been restarted on her Advair, and I would add a long-acting muscarinic antagonist. 5. Given that she is on high-dose cortical steroids, would add gastrointestinal (GI) prophylaxis. PROGNOSIS: Guarded. CRITICAL CARE TIME: 40 minutes, not including procedure time.
[2016-07-19] MEDS ORDERED: IBUPROFEN 400 MG TAB PO ONE (06:15)
[2016-07-19] MEDS: IPRATROPIUM 0.5MG/ALBUTEROL 2.5MG INH SOL UD 3ML (DUONEB)(J7620) NEB SCH ×2 (06:28→16:53)
[2016-07-19] MEDS: TIOTROPIUM INHALER/CAPSULE (SPIRIVA) INH SCH (06:28)
[2016-07-19] MEDS: ADVAIR DISKUS 250/50 INH PWD INH SCH ×2 (07:50→19:38)
[2016-07-19] MEDS: ZONISAMIDE 50 MG CAP (ZONEGRAN) PO SCH ×2 (08:24→20:08)
[2016-07-19] MEDS: PANTOPRAZOLE 40MG TAB (PROTONIX) PO SCH (08:25)
[2016-07-19] MEDS: DOCUSATE SODIUM 100 MG CAP PO SCH ×2 (08:25→20:08)
--- NOTE | 2016-07-19 09:30 | REP ---
Clinical: Shortness of breath. Comparison: 07/18/2016. Findings: Portable technique and underpenetration accentuate the pulmonary vasculature and interstitium. Mild pulmonary venous congestion cannot be excluded. No focal consolidation, effusion, or pneumothorax identified. Mediastinum and cardiac silhouette are within normal limits and stable. Skeletal structures are intact. Impression: Cannot exclude mild pulmonary venous congestion. No focal consolidation. Signed by Russell Garcia MD 07/19/2016 09:21 A
[2016-07-19] MEDS: LevoFLOXacin 500 MG in APPROPRIATE DILUENT 1 EA IV SCH (12:37)
--- NOTE | 2016-07-19 12:37 | IPNPDOC ---
Text Note Date of Service The patient was seen on 07/19/16 at 12:24. NOTE Subjective: Patient is a 56 year old female with a PMHx of COPD on Home O2 (2 liters), Hx of gallstones, GERD, Headaches, and HTN who presented to the ED with complaints of shortness of breath. She notes that she was recently admitted to [place] yesterday for similar episode and was discharged 07/17. She notes that she has not been compliant with medications and has been smoking. She has an intermittent productive cough, no fever / chills. Patient was admitted to MICU for COPD exacerbation requiring BIPAP. Patient has been seen and examined at the bedside. She has been off the BIPAP since she has been in the MICU. She reports her breathing is doing better. Objective: Vitals (See below) General: lying in bed, no acute distress, comfortable, AAOx3 HEENT: NC, AT CVS: RRR, +S1S2 Lungs: Fair air entry b/l, -w/r/r Abdomen: Soft, ND, NT, +BSx4 Extremities: +PPx4, - edema, - calf tenderness Assessment and plan: 1. Acute hypercapnic and hypoxic respiratory failure - on chronic hypoxic respiratory failure - likely 2/2 acute COPD exacerbation - Clinically she is doing well, no signs of respiratory difficulty - Physical does not reveal any wheezing - Serial ABG show improvement in CO2 retention - s/p BIPAP - c/w Solumedrol, Advair, Spiriva, Duoneb and Levaquin (Day #2) - Pulmonary / Critical care (Dr. Hendricks) following - appreciate their input 2. HTN - c/w diltiazem, 3. GERD - protonix and famotidine 4. Neuropathy - c/w gabapentin 5. DVT prophylaxis - c/w Heparin VS,Fishbone, I+O VS, Fishbone, I+O Laboratory Tests 07/19/16 05:07 Calcium Level 9.2, Red Blood Count 4.93, Mean Corpuscular Volume 90.8, Mean Corpuscular Hemoglobin 29.4, Mean Corpuscular Hemoglobin Concent 32.4, Red Cell Distribution Width 13.4 Vital Signs Date Time Temp Pulse Resp B/P Pulse Ox O2 Delivery O2 Flow Rate FiO2 07/19/16 08:24 118 135/94 07/19/16 08:00 97.3 24 88 Nasal Cannula 4.0 07/18/16 16:16 40 I&O- Last 24 Hours up to 6 AM 07/19/16 06:00 Intake Total 700 ml Output Total 1600 ml Balance -900 ml CAR TRIPATHI MD Jul 19, 2016 12:37
[2016-07-19] MEDS: FIORICET TAB PO PRN ×3 (12:38→23:07)
[2016-07-19] MEDS: ALBUTEROL SULFATE 2.5 MG/0.5 ML INH NEB SOLN NEB PRN (12:57)
[2016-07-19] MEDS: GABAPENTIN 300 MG CAP PO SCH (20:08)
[2016-07-19] MEDS: FAMOTIDINE 20 MG TAB PO SCH (20:08)
[2016-07-20] MEDS: IPRATROPIUM 0.5MG/ALBUTEROL 2.5MG INH SOL UD 3ML (DUONEB)(J7620) NEB SCH ×4 (01:00→22:07)
[2016-07-20] MEDS: HEPARIN SOD (PORCINE) 5000 UNITS/ML VIAL SC SCH ×3 (04:58→21:07)
[2016-07-20] MEDS: FIORICET TAB PO PRN ×4 (04:58→20:49)
[2016-07-20 05:57] LABS: MEAN CORPUSCULAR HEMOGLOBIN 29.6 pg (27.0-33.0); MEAN CORPUSCULAR HGB CONC 32.7 g/dl (32.0-36.5); MEAN CORPUSCULAR VOLUME 90.4 fl (80.0-96.0); RED CELL DISTRIBUTION WIDTH 14.2 % (11.5-14.5); WHITE BLOOD COUNT 10.8 K/mm3 (4.0-10.0)
[2016-07-20 06:00] VITALS: BP 123/75
[2016-07-20 06:10] LABS: ANION GAP 3 MEQ/L (8-16); BLOOD UREA NITROGEN 22 MG/DL (7-18); CALCIUM LEVEL 9.9 MG/DL (8.5-10.1); CARBON DIOXIDE LEVEL 41 MEQ/L (21-32); CHLORIDE LEVEL 99 MEQ/L (98-107); CREATININE FOR GFR 0.64 MG/DL (0.55-1.02); GLOMERULAR FILTRATION RATE > 60.0 (>51); GLUCOSE, FASTING 128 MG/DL (70-105); POTASSIUM SERUM 4.7 MEQ/L (3.5-5.1); SODIUM LEVEL 143 MEQ/L (136-145)
[2016-07-20] MEDS: TIOTROPIUM INHALER/CAPSULE (SPIRIVA) INH SCH (08:38)
[2016-07-20] MEDS: ADVAIR DISKUS 250/50 INH PWD INH SCH (08:38)
[2016-07-20] MEDS: DOCUSATE SODIUM 100 MG CAP PO SCH ×2 (09:00→20:48)
[2016-07-20] MEDS: ZONISAMIDE 50 MG CAP (ZONEGRAN) PO SCH (09:00)
--- NOTE | 2016-07-20 09:35 | ECHO ---
DATE OF PROCEDURE: 07/19/2016 REFERRING PHYSICIAN: Dr. Hendricks. HEIGHT 175 cm. WEIGHT 84 kg. INDICATION: Dyspnea. DIMENSIONS: IVS: 1.1 LV: 4.2 LVPW: 1.0 LA: 3.3 Aorta: 3.4 FINDINGS: The study is of acceptable technical quality. Left ventricle is normal size and systolic function with estimated EF 65-70%. Right ventricle is also normal size and systolic function. Both atria appear normal. All four cardiac valves were reasonably well seen and appear normal. No pericardial effusion is noted. Inferior vena cava is mildly dilated but partially collapses with respiration indicative of likely mildly elevated central venous pressure. Doppler interrogation reveals no aortic stenosis or insufficiency. There is trace mitral and trace tricuspid insufficiency. Calculated pulmonary artery pressure is within normal limits. The quality of TR jet though was not excellent and consequently they should be taken with some grain of salt. Pulmonic valve is functionally competent. Mitral inflow pattern and tissue Doppler imaging of mitral annulus reveal grade 1 diastolic dysfunction. CONCLUSIONS: 1. Study is of acceptable technical quality. 2. Normal LV size and systolic function, grade 1 diastolic dysfunction. 3. No significant valvular disease. 4. Normal or mildly elevated central venous pressure. 5. Probably normal pulmonary artery pressure. COMMENT: Subacute bacterial endocarditis (SBE) prophylaxis is not recommended. MTDD
[2016-07-20] MEDS: PANTOPRAZOLE 40MG TAB (PROTONIX) PO SCH (10:16)
[2016-07-20] MEDS ORDERED: PANT40TA2 PO (11:22)
[2016-07-20] MEDS ORDERED: LEVA750T PO (11:22)
[2016-07-20] MEDS ORDERED: TIOT18INH INH (11:22)
[2016-07-20] MEDS ORDERED: PRED10TA FT (11:22)
--- NOTE | 2016-07-20 13:43 | IPNPDOC ---
Text Note Date of Service The patient was seen on 07/20/16 at 13:39. NOTE Subjective: Patient is a 56 year old female with a PMHx of COPD on Home O2 (2 liters), Hx of gallstones, GERD, Headaches, and HTN who presented to the ED with complaints of shortness of breath. She notes that she was recently admitted to [place] yesterday for similar episode and was discharged 1/3. She notes that she has not been compliant with medications and has been smoking. She has an intermittent productive cough, no fever / chills. Patient was admitted to MICU for COPD exacerbation requiring BIPAP. Patient has been seen and examined at the bedside. She denies any difficulty breathing. She notes that she has this persistent headache. Objective: Vitals (See below) General: lying in bed, no acute distress, comfortable, AAOx3 HEENT: NC, AT CVS: RRR, +S1S2 Lungs: Fair air entry b/l, -w/r/r Abdomen: Soft, ND, NT, +BSx4 Extremities: +PPx4, - edema, - calf tenderness Assessment and plan: 1. Acute hypercapnic and hypoxic respiratory failure - on chronic hypoxic respiratory failure - likely 2/2 acute COPD exacerbation - Clinically she is doing well, no signs of respiratory difficulty - Physical does not reveal any wheezing - Serial ABG show improvement in CO2 retention - s/p BIPAP - c/w Solumedrol, Advair, Spiriva, Duoneb and Levaquin (Day #3) - Will transition to PO prednisone and PO levaquin upon discharge 2. Headache - Patient has been seen and evaluated by Neurology as an outpatient; - Advised that this may be migraine or nerve related - Has been given Zonisamide as outpatient - Scheduled to have a nerve conduction study as an outpatient - Fioricet was started yesterday without relief - Will increase dose of Zonisamide at this time - Will require outpatient follow up with Neurology 3. HTN - c/w diltiazem, 4. GERD - protonix and famotidine 5. Neuropathy - c/w gabapentin 6. DVT prophylaxis - c/w Heparin VS,Fishbone, I+O VS, Fishbone, I+O Laboratory Tests 07/20/16 05:32 Calcium Level 9.9, Red Blood Count 4.55, Mean Corpuscular Volume 90.4, Mean Corpuscular Hemoglobin 29.6, Mean Corpuscular Hemoglobin Concent 32.7, Red Cell Distribution Width 14.2 Vital Signs Date Time Temp Pulse Resp B/P Pulse Ox O2 Delivery O2 Flow Rate FiO2 07/20/16 11:00 20 07/20/16 10:18 99 123/75 07/20/16 06:00 98.1 91 Room Air 07/19/16 21:00 3.0 07/18/16 16:16 40 I&O- Last 24 Hours up to 6 AM 07/20/16 06:00 Intake Total 1800 ml Output Total 3150 ml Balance -1350 ml CAR TRIPATHI MD Jul 20, 2016 13:43
[2016-07-20 14:00] VITALS: BP 134/78
[2016-07-20] MEDS: methylPREDNISolone INJ 125 MG/2 ML VIAL (J2930) IV SCH ×2 (14:23→20:48)
[2016-07-20] MEDS: LevoFLOXacin 500 MG in APPROPRIATE DILUENT 1 EA IV SCH (14:24)
[2016-07-20] MEDS: traMADol 50 MG TAB PO PRN (15:16)
--- NOTE | 2016-07-20 16:06 | EDDOCDS ---
Physician Documentation [facility] Name: Halima Atkins Age: 56 yrs Sex: Female : 1960 Arrival Date: 07/18/2016 Time: 10:42 Bed 4 Private MD: ELIZABETH CAM Disposition: 07/18/16 12:22 Hospitalization ordered by Karlos Madison for Inpatient Admission. Preliminary diagnosis is Respiratory failure, unspecified with hypercapnia. - Bed requested for M ICU. - Status is Inpatient Admission. ck1 - Condition is Stable. - Problem is an acute exacerbation. - Symptoms are unchanged. Historical: - Allergies: no known allergies; - Home Meds: 1. 2L NC 2. DuoNeb 0.5 mg-3 mg(2.5 mg base)/3 mL Inhl nebu 3 mL 4 times per day 3. Prednisone 60 mg Oral once daily 4. gabapentin 600 mg Oral tab 1 tab daily - PMHx: COPD; Emphysema; Gallstones; GERD; Headaches; Hypertension; nerve damage; - PSHx: Tonsillectomy; Appendectomy; Spinal Fusion; Hip Replacement; Hernia repair; Hysterectomy; Laminectomy; Partial Removal of Small Bowel; - Social history: Smoking status: Patient states former smoker of tobacco. No barriers to communication noted, The patient speaks fluent Vietnamese, Speaks appropriately for age. - Family history: No immediate family members are acutely ill. - : The pt / caregiver states he / she is not on anticoagulants. Home medication list is obtained from the patient. - Exposure Risk Screening:: None identified. Vital Signs: 07/18 10:44 BP 148 / 96; Pulse 111; Resp 28 S; Temp 96.6; Pulse Ox 88% on 3 lpm NC; Weight 88.45 kg dd6 / 195 lbs (R); Height 5 ft. 9 in. (175.26 cm) (R); Pain 7/10; 11:18 BP 138 / 96 (auto/); hs1 11:19 Pulse 100 MON; Pulse Ox 94% ; hs1 13:54 BP 120 / 77 (auto/); hs1 13:54 Pulse 96 MON; Pulse Ox 94% on BiPAP; hs1 14:24 BP 140 / 102 (auto/); hs1 14:24 Pulse 96 MON; Resp 22; Temp 98.9(T); Pulse Ox 94% ; Pain 3/10; hs1 10:44 Body Mass Index 28.80 (88.45 kg, 175.26 cm) dd6 MDM: 10:58 -Blood Culture (Adults Only), peripheral from different site, or from device/port/PICC sd1 etc. if present ordered. 10:58 Call Respiratory ordered. sd1 10:58 Watch Leader/Pulse Ox/q 15 min VS ordered. sd1 10:58 IV Saline Lock ordered. sd1 10:58 Oxygen at 4L/Min NC or Home dosage ordered. sd1 10:58 Rhythm Strip to chart ordered. sd1 11:00 -Arterial Blood Gas Ordered. EDMS 11:00 B-Type Natiuretic Peptide Ordered. EDMS 11:00 Basic Metabolic Profile Ordered. EDMS 11:00 CBC with Diff Ordered. EDMS 11:00 Cardiac Injury Profile Ordered. EDMS 11:00 Troponin Ordered. EDMS 11:00 Lactic Acid (Singh tube on ice) Ordered. EDMS 11:00 -Blood Culture Ordered. EDMS 11:00 Chest, 1 View Ordered. EDMS 11:00 ECG WITH READING ER PHYS+CARDIAG ordered. EDMS 11:05 Call Respiratory complete. lbd 11:05 -Blood Culture (Adults Only), peripheral from different site, or from device/port/PICC lbd etc. if present complete. 11:08 Albuterol-Ipratropium 1 neb Nebulizer every 20 minutes x3 ordered. sd1 11:08 Solu-MEDROL 125 mg IVP once ordered. sd1 11:18 BLOOD CULTURES Ordered. EDMS 11:28 BED REQUEST+ADM ordered. EDMS 11:34 LORazepam 1 mg IVP once ordered. sd1 11:40 LORazepam 1 mg IVP once ordered. hs1 11:49 -Arterial Blood Gas Reviewed. sd1 11:49 CBC with Diff Reviewed. sd1 12:15 Basic Metabolic Profile Reviewed. sd1 12:15 Cardiac Injury Profile Reviewed. sd1 12:15 B-Type Natiuretic Peptide Reviewed. sd1 12:15 Troponin Reviewed. sd1 12:15 Lactic Acid (Singh tube on ice) Reviewed. sd1 12:15 Chest, 1 View Reviewed. sd1 12:32 Written Provider Order was scanned into [employer] and attached to record. lbd 12:43 VENTILATOR SETTINGS ordered. EDMS 12:43 PORTABLE CHEST X-RAY Ordered. EDMS 12:43 PORTABLE CHEST X-RAY Ordered. EDMS 12:43 PORTABLE CHEST X-RAY Ordered. EDMS 12:44 PORTABLE CHEST X-RAY Ordered. EDMS 12:44 PORTABLE CHEST X-RAY Ordered. EDMS 12:44 PORTABLE CHEST X-RAY Ordered. EDMS 12:44 PORTABLE CHEST X-RAY Ordered. EDMS 12:44 PORTABLE CHEST X-RAY Ordered. EDMS 12:45 Admission / Observation Status ordered. EDMS 12:45 NPO DIET ordered. EDMS 12:46 levofloxacin 500 mg IVPB once over 60 mins ordered. hs1 13:05 BIPAP INPATIENT ordered. EDMS 14:05 Financial registration complete. mm15 14:05 [facility] Payment Agreement was scanned into [employer] and attached to record. mm15 07/20 11:42 T-Sheet-- Draft Copy was scanned into [employer] and attached to record. gb Administered Medications: 07/18 11:17 Drug: Albuterol-Ipratropium 1 neb [ipratropium-albuterol 0.5 mg-3 mg(2.5 mg base)/3 mL kt1 nebulization soln (1 neb)] Route: Nebulizer; 11:22 Follow up: Response: Nebulizer completed kt1 11:40 Drug: Solu-MEDROL 125 mg [Solu-Medrol 500 mg intravenous solution (125 mg)] Route: IVP; hs1 Site: left antecubital; 11:40 Drug: LORazepam 1 mg [lorazepam 2 mg/mL injection solution (0.5 mL)] Route: IVP; Site: hs1 left antecubital; 12:15 Drug: Albuterol-Ipratropium 1 neb [ipratropium-albuterol 0.5 mg-3 mg(2.5 mg base)/3 mL kt1 nebulization soln (1 neb)] Route: Nebulizer; 12:46 Drug: levofloxacin 500 mg [levofloxacin 500 mg/100 mL in 5 % dextrose intravenous hs1 piggyback] Route: IVPB; Infused Over: 60 mins; Site: left antecubital; 15:02 Follow up: IV Status: Completed infusion; IV Intake: 100ml hs1 Signatures: Dispatcher [employer] EDMS Brittanie Myles MD MD sd1 Monica Vences, Real Estate Marketing Coordinator Unit lbd Zhanna Syed Reg Reg gb Andrey Vazquez RN RN mlb1 Sadia MoraRN RN ck1 Shelia Taylor RN RN hs1 Patricia March mm15 Savita Turner, RASHID PRODUCTION MACHINE OPERATOR tanyaf Bernadette Stout kt1 The chart was reviewed and I authenticate all verbal orders and agree with the evaluation and treatment provided.Attachments: 12:32 Written Provider Order lbd 14:05 [facility] Payment Agreement mm15 07/20 11:42 T-Sheet-- Draft Copy gb Chart Complete MTDD
--- NOTE | 2016-07-20 16:06 | EDDOCDS ---
Nurse's Notes [facility] Name: Halima Atkins Age: 56 yrs Sex: Female : 1960 Arrival Date: 07/18/2016 Time: 10:42 Bed 4 Private MD: ELIZABETH CAM Diagnosis: Respiratory failure, unspecified with hypercapnia Presentation: 07/18 10:48 Presenting complaint: Patient states: Chest pain and SOB began on 07/09/16 [address] discharged yesterday. Adult Sepsis Screening: The patient does not have new or worsening altered mentation. Patient has a respiratory rate of greater than or equal to 22 (1 point). Systolic blood pressure is greater than 100. Patient has a qSOFA score of 0- Negative Sepsis Screen. Suicide/Homicide risk assessment- the patient denies having any suicidal and/or homicidal ideations and does not present with any other emotional, behavioral or mental health complaints. Status: Patient is not a environmental services supervisor or dependent. Transition of care: patient was not received from another setting of care. 10:48 Method Of Arrival: Walkin/Carried/Asstd [facility] 10:48 Acuity: MADALYN Level 2 [facility] Triage Assessment: 10:51 General: Appears distressed, Behavior is appropriate for age, cooperative. Pain: b1 Location: head and chest Pain currently is 10 out of 10 on a pain scale. HIV screening NA for this visit Offered previously. Respiratory: Onset: The symptoms/episode began/occurred gradually, Respiratory effort is labored. Historical: - Allergies: no known allergies; - Home Meds: 1. 2L NC 2. DuoNeb 0.5 mg-3 mg(2.5 mg base)/3 mL Inhl nebu 3 mL 4 times per day 3. Prednisone 60 mg Oral once daily 4. gabapentin 600 mg Oral tab 1 tab daily - PMHx: COPD; Emphysema; Gallstones; GERD; Headaches; Hypertension; nerve damage; - PSHx: Tonsillectomy; Appendectomy; Spinal Fusion; Hip Replacement; Hernia repair; Hysterectomy; Laminectomy; Partial Removal of Small Bowel; - Social history: Smoking status: Patient states former smoker of tobacco. No barriers to communication noted, The patient speaks fluent Hong Konger, Speaks appropriately for age. - Family history: No immediate family members are acutely ill. - : The pt / caregiver states he / she is not on anticoagulants. Home medication list is obtained from the patient. - Exposure Risk Screening:: None identified. Screenin:28 Screening information is obtained from the patient. Fall risk: No risks identified. hs1 Assistance ADL's: requires no assistance with activities of daily living. Abuse/DV Screen: The patient / caregiver reports he/she is: not in a situation that causes fear, pain or injury. Nutritional screening: No deficits noted. Advance Directives: There is no active DNR order. home support is adequate. Assessment: 11:25 General: Appears in no apparent distress, Behavior is anxious. Pain: Denies pain. hs1 Cardiovascular: Rhythm is sinus rhythm No ectopy. Cardiovascular: Capillary refill is sluggish Chest pain is denied. Respiratory: Airway is patent Respiratory effort is labored, respiratory in to assist patient onto BiPap. Breath sounds are diminished bilaterally. Breath sounds with wheezes bilaterally. Derm: Skin is normal. 12:25 General: Appears in no apparent distress, Behavior is appropriate for age, cooperative, hs1 Pt resting Zithromax administered at present per order. Pt complaining of slight headache 09/21 and MD Madison aware. . 13:20 General: Appears in no apparent distress, Behavior is appropriate for age, cooperative, hs1 pt asking what happened to her and she was told that she was hypercarbic and that's why she doesn't remember much when she first got here. Pt aware of recent transfer to floor. . 14:37 General: Appears in no apparent distress, comfortable, Behavior is appropriate for age, hs1 cooperative, Pt is asking to use restroom before admission to floor. Pt being assisted to bedside commode by aide. Daughter present at bedside and no other needs noted. . 15:00 General: Appears Pt refusing BIPAP at present until heading upstairs. Pt accomodated hs1 with bedpan and then commode and then patient took mask off and refused mask until ICU. Pt asking for something to drink and medication for headache. . Vital Signs: 10:44 BP 148 / 96; Pulse 111; Resp 28 S; Temp 96.6; Pulse Ox 88% on 3 lpm NC; Weight 88.45 kg dd6 (R); Height 5 ft. 9 in. (175.26 cm) (R); Pain 7/10; 11:18 BP 138 / 96 (auto/); hs1 11:19 Pulse 100 MON; Pulse Ox 94% ; hs1 13:54 BP 120 / 77 (auto/); hs1 13:54 Pulse 96 MON; Pulse Ox 94% on BiPAP; hs1 14:24 BP 140 / 102 (auto/); hs1 14:24 Pulse 96 MON; Resp 22; Temp 98.9(T); Pulse Ox 94% ; Pain 3/10; hs1 10:44 Body Mass Index 28.80 (88.45 kg, 175.26 cm) dd6 Vitals: 10:44 Log In Time: July 18, 2016 at 10:42. dd6 ED Course: 10:43 Patient visited by Vincenzo Plaza PCA. dd6 10:43 NO PRIMARY PHYSICIAN, . is Private Physician. dd6 10:43 Patient moved to Waiting dd6 10:44 BODY, ELIZABETH is Private Physician. dd6 10:48 Patient visited by Andrey Vazquez, CRYSTAL. mlb1 10:49 Triage Initiated mlb1 10:56 Patient moved to 19 mlb1 11:00 Brittanie Myles MD is Attending Physician. sd1 11:00 Patient visited by Brittanie Myles MD. sd1 11:12 Patient moved to 4 jlf 11:17 -Arterial Blood Gas Sent. kt1 11:21 Patient visited by Savita Turner PCA. jlf 11:21 EKG done. (by ED staff). Reviewed by Brittanie Myles MD. jlf 11:22 Patient visited by Savita Turner PCA. jlf 11:33 Inserted saline lock: 18 gauge in left antecubital area and blood collected. The mb9 patient tolerated the procedure well. 11:53 Patient visited by Savita Turner PCA. jlf 11:53 Chest, 1 View Returned. EDMS 12:17 Patient visited by Savita Turner PCA. jlf 12:22 Karlos Madison DO is Hospitalizing Provider. sd1 12:28 The patient / caregiver is instructed regarding the plan of care and ED course. hs1 12:32 Written Provider Order was scanned into [employer] and attached to record. lbd 12:46 BLOOD CULTURES Sent. hs1 14:05 [facility] Payment Agreement was scanned into [employer] and attached to record. mm15 14:39 No procedures done that require assistance. hs1 07/20 11:42 T-Sheet-- Draft Copy was scanned into [employer] and attached to record. gb Administered Medications: 07/18 11:17 Drug: Albuterol-Ipratropium 1 neb [ipratropium-albuterol 0.5 mg-3 mg(2.5 mg base)/3 mL kt1 nebulization soln (1 neb)] Route: Nebulizer; 11:22 Follow up: Response: Nebulizer completed kt1 11:40 Drug: Solu-MEDROL 125 mg [Solu-Medrol 500 mg intravenous solution (125 mg)] Route: IVP; hs1 Site: left antecubital; 11:40 Drug: LORazepam 1 mg [lorazepam 2 mg/mL injection solution (0.5 mL)] Route: IVP; Site: hs1 left antecubital; 12:15 Drug: Albuterol-Ipratropium 1 neb [ipratropium-albuterol 0.5 mg-3 mg(2.5 mg base)/3 mL kt1 nebulization soln (1 neb)] Route: Nebulizer; 12:46 Drug: levofloxacin 500 mg [levofloxacin 500 mg/100 mL in 5 % dextrose intravenous hs1 piggyback] Route: IVPB; Infused Over: 60 mins; Site: left antecubital; 15:02 Follow up: IV Status: Completed infusion; IV Intake: 100ml hs1 Intake: 15:02 IV: 100.00ml; Total: 100.00ml. hs1 RT: 11:17 ABG's drawn from right radial artery pressure held for 5 minutes no bleeding noted kt1 pressure bandage applied specimen sent pt. tolerated well. 11:30 BIPAP: Inspiratory Pressure: 12, Expiratory Pressure: 6, Backup Rate: 10, FiO2: 40%, kt1 Full face fask. 14:53 BIPAP:. O2 via Pt refusing bipap at this time until she goes up to ICU. Reassurance sd7 given on importance of bipap and reason for bipap. Pt adament that she is not wearing the mask right now. Pt placed on 6LNC at this time. Order Results: Lab Order: -Arterial Blood Gas; SPEC'M 07/18/16 11:09 Test: ABG pH (ARTERIAL); Value: 7.302; Range: 7.350-7.450; Abnormal: Below low normal; Units: UNITS; Status: F Test: ABG PARTIAL PRESSURE CO2; Value: 77.2; Range: 35.0-45.0; Abnormal: Above upper panic limits; Units: mmHg; Status: F Test: ABG PARTIAL PRESSURE O2; Value: 68.1; Range: 75.0-100.0; Abnormal: Below low normal; Units: mmHg; Status: F Test: ABG TOTAL CO2; Value: 39.7; Range: 22.0-29.0; Abnormal: Above high normal; Units: MEQ/L; Status: F Test: ABG HCO3; Value: 37.3; Range: 22.0-26.0; Abnormal: Above high normal; Units: MEQ/L; Status: F Test: ABG BASE EXCESS; Value: 7.4; Range: -2.0-2.0; Abnormal: Above high normal; Status: F Test: ABG STANDARD HCO3; Value: 31.1; Range: 22.0-26.0; Abnormal: Above high normal; Units: MEQ/L; Status: F Test: ABG O2 SATURATION; Value: 93.6; Range: 95.0-99.0; Abnormal: Below low normal; Units: %; Status: F Test: ABG DEVICE; Value: NASAL TON; Status: F Lab Order: B-Type Natiuretic Peptide; [facility] 07/18/16 11:09 Test: BRAIN NATRIURETIC PEPTIDE; Value: 49.6; Range: <100; Units: PG/ML; Status: F Lab Order: Basic Metabolic Profile; [facility] 07/18/16 11:09 Test: GLUCOSE, FASTING; Value: 90; Range: 70-105; Units: MG/DL; Status: F Test: BLOOD UREA NITROGEN; Value: 18; Range: 7-18; Units: MG/DL; Status: F Test: CREATININE FOR GFR; Value: 0.53; Range: 0.55-1.02; Abnormal: Below low normal; Units: MG/DL; Status: F Test: GLOMERULAR FILTRATION RATE; Value: > 60.0; Range: >51; Status: F Test: SODIUM LEVEL; Value: 143; Range: 136-145; Units: MEQ/L; Status: F Test: POTASSIUM SERUM; Value: 3.8; Range: 3.5-5.1; Units: MEQ/L; Status: F Test: CHLORIDE LEVEL; Value: 97; Range: 98-107; Abnormal: Below low normal; Units: MEQ/L; Status: F Test: CARBON DIOXIDE LEVEL; Value: 45; Range: 21-32; Abnormal: Above high normal; Units: MEQ/L; Status: F Test: ANION GAP; Value: 1; Range: 8-16; Abnormal: Below low normal; Units: MEQ/L; Status: F Test: CALCIUM LEVEL; Value: 9.9; Range: 8.5-10.1; Units: MG/DL; Status: F Test Note: ; Units are mL/min/1.73 m2 Chronic Kidney Disease Staging per NKF: Stage I & II GFR >=60 Normal to Mildly Decreased Stage III GFR 30-59 Moderately Decreased Stage IV GFR 15-29 Severely Decreased Stage V GFR <15 Very Little GFR Left ESRD GFR <15 on BUYER LIAISON Lab Order: CBC with Diff; SPEC'M 07/18/16 11:09 Test: WHITE BLOOD COUNT; Value: 11.3; Range: 4.0-10.0; Abnormal: Above high normal; Units: K/mm3; Status: F Test: RED BLOOD COUNT; Value: 5.26; Range: 4.00-5.40; Units: M/mm3; Status: F Test: HEMOGLOBIN; Value: 15.3; Range: 12.0-16.0; Units: g/dl; Status: F Test: HEMATOCRIT; Value: 47.4; Range: 36.0-47.0; Abnormal: Above high normal; Units: %; Status: F Test: MEAN CORPUSCULAR VOLUME; Value: 90.1; Range: 80.0-96.0; Units: fl; Status: F Test: MEAN CORPUSCULAR HEMOGLOBIN; Value: 29.2; Range: 27.0-33.0; Units: pg; Status: F Test: MEAN CORPUSCULAR HGB CONC; Value: 32.4; Range: 32.0-36.5; Units: g/dl; Status: F Test: RED CELL DISTRIBUTION WIDTH; Value: 14.5; Range: 11.5-14.5; Units: %; Status: F Test: PLATELET COUNT, AUTOMATED; Value: 232; Range: 150-450; Units: k/mm3; Status: F Test: NEUTROPHILS %; Value: 74.0; Range: 36.0-66.0; Abnormal: Above high normal; Units: %; Status: F Test: LYMPH %; Value: 15.3; Range: 24.0-44.0; Abnormal: Below low normal; Units: %; Status: F Test: MONO %; Value: 7.1; Range: 0.0-5.0; Abnormal: Above high normal; Units: %; Status: F Test: EOS %; Value: 1.2; Range: 0.0-3.0; Units: %; Status: F Test: BASO %; Value: 0.7; Range: 0.0-1.0; Units: %; Status: F Test: LARGE UNSTAINED CELL %; Value: 1.6; Range: 0.0-4.0; Units: %; Status: F Test: NEUTROPHILS #; Value: 8.4; Range: 1.8-7.7; Abnormal: Above high normal; Units: K/mm3; Status: F Test: LYMPH #; Value: 1.9; Range: 1.5-4.5; Units: K/mm3; Status: F Test: MONO #; Value: 0.8; Range: 0.0-0.8; Units: K/mm3; Status: F Test: EOS #; Value: 0.1; Range: 0.0-0.50; Units: K/mm3; Status: F Test: BASO #; Value: 0.1; Range: 0.0-0.2; Units: K/mm3; Status: F Test: LARGE UNSTAINED CELL #; Value: 0.2; Range: 0.0-0.4; Units: K/mm3; Status: F Lab Order: Cardiac Injury Profile; SPEC'M 07/18/16 11:09 Test: CPK CREATINE PHOSPHOKINASE; Value: 42; Range: 26-192; Units: U/L; Status: F Test: CK-MB VALUE MASS; Value: 3.9; Range: 0.0-3.6; Abnormal: Above high normal; Units: NG/ML; Status: F Test: MB/CK RELATIVE INDEX; Value: 9.28; Range: < OR =4; Abnormal: Above high normal; Status: F Test Note: ; DIAGNOSIS CRITERIA MMB ng/ml Relative Index (RI) NON-AMI < or = 5 N/A [place] > 5 < or = 4 AMI > 5 > 4 Lab Order: Troponin; SPEC'M 07/18/16 11:09 Test: TROPONIN I; Value: < 0.02; Range: < 0.10; Units: NG/ML; Status: F Test Note: ; Troponin I Reference Interval for [place]. LOCI: 99th Percentile= 0.00-0.045 ng/ml Risk Stratification: <= 0.10 ng/ml Decreased Risk for Adverse Clinical Events. 0.10-1.50 ng/ml Increased Risk for Adverse Clinical Events. Evaluation of additional criterion and/or repeat testing in 2-6 hours is suggested to rule out myocardial damage. >= 1.50 ng/ml Indicative of Myocardial Injury. Lab Order: Lactic Acid (Singh tube on ice); SPEC'M 07/18/16 11:09 Test: LACTIC ACID LEVEL, LACTATE; Value: 0.9; Range: 0.4-2.0; Units: MMOL/L; Status: F Radiology Order: Chest, 1 View Test: Chest, 1 View REASON FOR EXAMINATION: Shortness of Breath; SINGLE VIEW CHEST:; ; AP portable view of the chest is performed and compared to prior study of; 01/04/2016. I see no acute infiltrate with no change since prior study. Heart; is upper limits of normal in size. Mediastinal silhouette is unchanged. The; visualized osseous structures appear intact.; ; IMPRESSION:; No acute infiltrate.; ; Unreviewed; Outcome: 12:22 Decision to Hospitalize by Provider. sd1 15:01 Discharge Assessment: Patient awake, alert and oriented x 3. No cognitive and/or hs1 functional deficits noted. Patient verbalized understanding of disposition instructions. patient administered narcotics - yes. Patient was admitted to the hospital or transferred to another facility. The following High Risk Discharge criteria are identified: None. Admitted to ICU accompanied by nurse, accompanied by tech, family with patient, via stretcher, with oxygen, on monitor, with chart. critical. CT Study completed. Property sent home with patient. 15:05 Patient left the ED. ck1 Signatures: Dispatcher [employer] Brittanie Myles MD MD sd1 Monica Vences, Stretch Box Tender Unit lbd Zhanna Syed, Reg Reg gb Andrey Vazquez RN RN mlb1 Bernadette Stout kt1 Sadia MoraRN RN ck1 Vincenzo Plaza, LIFE SKILLS COORDINATOR VOLUNTEER LIFE SKILLS COORDINATOR VOLUNTEER dd6 Shelia Taylor RN RN hs1 Patricia March mm15 Savita Turner, LIFE SKILLS COORDINATOR VOLUNTEER LIFE SKILLS COORDINATOR VOLUNTEER jlf Rasheeda Soto,RT RT sd7 Andrey Florentino RN RN mb9 Corrections: (The following items were deleted from the chart) 11:06 10:48 Acuity: MADALYN Level 3 mlb1 mlb1 Chart Complete MTDD
--- NOTE | 2016-07-20 16:06 | EDDOCDS ---
Physician Documentation [facility] Name: Halima Atkins Age: 56 yrs Sex: Female : 1960 Arrival Date: 07/18/2016 Time: 10:42 Bed 4 Private MD: ELIZABETH CAM Disposition: 07/18/16 12:22 Hospitalization ordered by Karlos Madison for Inpatient Admission. Preliminary diagnosis is Respiratory failure, unspecified with hypercapnia. - Bed requested for M ICU. - Status is Inpatient Admission. ck1 - Condition is Stable. - Problem is an acute exacerbation. - Symptoms are unchanged. Historical: - Allergies: no known allergies; - Home Meds: 1. 2L NC 2. DuoNeb 0.5 mg-3 mg(2.5 mg base)/3 mL Inhl nebu 3 mL 4 times per day 3. Prednisone 60 mg Oral once daily 4. gabapentin 600 mg Oral tab 1 tab daily - PMHx: COPD; Emphysema; Gallstones; GERD; Headaches; Hypertension; nerve damage; - PSHx: Tonsillectomy; Appendectomy; Spinal Fusion; Hip Replacement; Hernia repair; Hysterectomy; Laminectomy; Partial Removal of Small Bowel; - Social history: Smoking status: Patient states former smoker of tobacco. No barriers to communication noted, The patient speaks fluent Icelandic, Speaks appropriately for age. - Family history: No immediate family members are acutely ill. - : The pt / caregiver states he / she is not on anticoagulants. Home medication list is obtained from the patient. - Exposure Risk Screening:: None identified. Vital Signs: 07/18 10:44 BP 148 / 96; Pulse 111; Resp 28 S; Temp 96.6; Pulse Ox 88% on 3 lpm NC; Weight 88.45 kg dd6 / 195 lbs (R); Height 5 ft. 9 in. (175.26 cm) (R); Pain 7/10; 11:18 BP 138 / 96 (auto/); hs1 11:19 Pulse 100 MON; Pulse Ox 94% ; hs1 13:54 BP 120 / 77 (auto/); hs1 13:54 Pulse 96 MON; Pulse Ox 94% on BiPAP; hs1 14:24 BP 140 / 102 (auto/); hs1 14:24 Pulse 96 MON; Resp 22; Temp 98.9(T); Pulse Ox 94% ; Pain 3/10; hs1 10:44 Body Mass Index 28.80 (88.45 kg, 175.26 cm) dd6 MDM: 10:58 -Blood Culture (Adults Only), peripheral from different site, or from device/port/PICC sd1 etc. if present ordered. 10:58 Call Respiratory ordered. sd1 10:58 Transportation Design Engineer/Pulse Ox/q 15 min VS ordered. sd1 10:58 IV Saline Lock ordered. sd1 10:58 Oxygen at 4L/Min NC or Home dosage ordered. sd1 10:58 Rhythm Strip to chart ordered. sd1 11:00 -Arterial Blood Gas Ordered. EDMS 11:00 B-Type Natiuretic Peptide Ordered. EDMS 11:00 Basic Metabolic Profile Ordered. EDMS 11:00 CBC with Diff Ordered. EDMS 11:00 Cardiac Injury Profile Ordered. EDMS 11:00 Troponin Ordered. EDMS 11:00 Lactic Acid (Singh tube on ice) Ordered. EDMS 11:00 -Blood Culture Ordered. EDMS 11:00 Chest, 1 View Ordered. EDMS 11:00 ECG WITH READING ER PHYS+CARDIAG ordered. EDMS 11:05 Call Respiratory complete. lbd 11:05 -Blood Culture (Adults Only), peripheral from different site, or from device/port/PICC lbd etc. if present complete. 11:08 Albuterol-Ipratropium 1 neb Nebulizer every 20 minutes x3 ordered. sd1 11:08 Solu-MEDROL 125 mg IVP once ordered. sd1 11:18 BLOOD CULTURES Ordered. EDMS 11:28 BED REQUEST+ADM ordered. EDMS 11:34 LORazepam 1 mg IVP once ordered. sd1 11:40 LORazepam 1 mg IVP once ordered. hs1 11:49 -Arterial Blood Gas Reviewed. sd1 11:49 CBC with Diff Reviewed. sd1 12:15 Basic Metabolic Profile Reviewed. sd1 12:15 Cardiac Injury Profile Reviewed. sd1 12:15 B-Type Natiuretic Peptide Reviewed. sd1 12:15 Troponin Reviewed. sd1 12:15 Lactic Acid (Singh tube on ice) Reviewed. sd1 12:15 Chest, 1 View Reviewed. sd1 12:32 Written Provider Order was scanned into [employer] and attached to record. lbd 12:43 VENTILATOR SETTINGS ordered. EDMS 12:43 PORTABLE CHEST X-RAY Ordered. EDMS 12:43 PORTABLE CHEST X-RAY Ordered. EDMS 12:43 PORTABLE CHEST X-RAY Ordered. EDMS 12:44 PORTABLE CHEST X-RAY Ordered. EDMS 12:44 PORTABLE CHEST X-RAY Ordered. EDMS 12:44 PORTABLE CHEST X-RAY Ordered. EDMS 12:44 PORTABLE CHEST X-RAY Ordered. EDMS 12:44 PORTABLE CHEST X-RAY Ordered. EDMS 12:45 Admission / Observation Status ordered. EDMS 12:45 NPO DIET ordered. EDMS 12:46 levofloxacin 500 mg IVPB once over 60 mins ordered. hs1 13:05 BIPAP INPATIENT ordered. EDMS 14:05 Financial registration complete. mm15 14:05 [facility] Payment Agreement was scanned into [employer] and attached to record. mm15 07/20 11:42 T-Sheet-- Draft Copy was scanned into [employer] and attached to record. gb Administered Medications: 07/18 11:17 Drug: Albuterol-Ipratropium 1 neb [ipratropium-albuterol 0.5 mg-3 mg(2.5 mg base)/3 mL kt1 nebulization soln (1 neb)] Route: Nebulizer; 11:22 Follow up: Response: Nebulizer completed kt1 11:40 Drug: Solu-MEDROL 125 mg [Solu-Medrol 500 mg intravenous solution (125 mg)] Route: IVP; hs1 Site: left antecubital; 11:40 Drug: LORazepam 1 mg [lorazepam 2 mg/mL injection solution (0.5 mL)] Route: IVP; Site: hs1 left antecubital; 12:15 Drug: Albuterol-Ipratropium 1 neb [ipratropium-albuterol 0.5 mg-3 mg(2.5 mg base)/3 mL kt1 nebulization soln (1 neb)] Route: Nebulizer; 12:46 Drug: levofloxacin 500 mg [levofloxacin 500 mg/100 mL in 5 % dextrose intravenous hs1 piggyback] Route: IVPB; Infused Over: 60 mins; Site: left antecubital; 15:02 Follow up: IV Status: Completed infusion; IV Intake: 100ml hs1 Signatures: Dispatcher [employer] EDMS Brittanie Myles MD MD sd1 Monica Vences, Underwriting Service Representative Unit lbd Zhanna Syed Reg Reg gb Andrey Vazquez RN RN mlb1 Sadia MoraRN RN ck1 Shelia Taylor RN RN hs1 Patricia March mm15 Savita Turner, RASHID MOBILE UI DEVELOPER tanyaf Bernadette Stout kt1 The chart was reviewed and I authenticate all verbal orders and agree with the evaluation and treatment provided.Attachments: 12:32 Written Provider Order lbd 14:05 [facility] Payment Agreement mm15 07/20 11:42 T-Sheet-- Draft Copy gb Chart Complete MTDD
[2016-07-20] MEDS ORDERED: diphenhydrAMINE 25 MG CAP PO PRN (19:45)
[2016-07-20] MEDS: ADVAIR DISKUS 500/50 INH PWD INH SCH (19:49)
[2016-07-20] MEDS: ZONISAMIDE 100 MG CAP (ZONEGRAN) PO SCH (20:48)
[2016-07-20] MEDS: FAMOTIDINE 20 MG TAB PO SCH (20:48)
[2016-07-20] MEDS: GABAPENTIN 300 MG CAP PO SCH (20:48)
[2016-07-20 22:00] VITALS: BP 122/77
[2016-07-21] MEDS: methylPREDNISolone INJ 125 MG/2 ML VIAL (J2930) IV SCH ×2 (04:13→11:22)
[2016-07-21] MEDS: FIORICET TAB PO PRN ×3 (04:14→11:24)
[2016-07-21] MEDS: ALBUTEROL SULFATE 2.5 MG/0.5 ML INH NEB SOLN NEB PRN (05:17)
[2016-07-21 06:00] VITALS: BP 158/92
[2016-07-21] MEDS: HEPARIN SOD (PORCINE) 5000 UNITS/ML VIAL SC SCH ×2 (06:24→15:06)
[2016-07-21 06:50] LABS: MEAN CORPUSCULAR HEMOGLOBIN 29.3 pg (27.0-33.0); MEAN CORPUSCULAR HGB CONC 32.3 g/dl (32.0-36.5); MEAN CORPUSCULAR VOLUME 90.9 fl (80.0-96.0); RED CELL DISTRIBUTION WIDTH 14.5 % (11.5-14.5); WHITE BLOOD COUNT 12.1 K/mm3 (4.0-10.0)
[2016-07-21 07:05] LABS: ANION GAP 5 MEQ/L (8-16); BLOOD UREA NITROGEN 28 MG/DL (7-18); CARBON DIOXIDE LEVEL 37 MEQ/L (21-32); CHLORIDE LEVEL 102 MEQ/L (98-107); CREATININE FOR GFR 0.59 MG/DL (0.55-1.02); GLOMERULAR FILTRATION RATE > 60.0 (>51); GLUCOSE, FASTING 110 MG/DL (70-105); POTASSIUM SERUM 4.8 MEQ/L (3.5-5.1); SODIUM LEVEL 144 MEQ/L (136-145)
[2016-07-21] MEDS: DOCUSATE SODIUM 100 MG CAP PO SCH (07:45)
[2016-07-21] MEDS: ZONISAMIDE 100 MG CAP (ZONEGRAN) PO SCH (07:45)
[2016-07-21 07:46] VITALS: BP 122/67
[2016-07-21] MEDS: PANTOPRAZOLE 40MG TAB (PROTONIX) PO SCH (07:46)
[2016-07-21] MEDS: ADVAIR DISKUS 500/50 INH PWD INH SCH (07:56)
[2016-07-21] MEDS: IPRATROPIUM 0.5MG/ALBUTEROL 2.5MG INH SOL UD 3ML (DUONEB)(J7620) NEB SCH ×2 (08:00→15:12)
[2016-07-21] MEDS ORDERED: FLEET ENEMA PR PRN (08:15)
[2016-07-21] MEDS: traMADol 50 MG TAB PO PRN ×2 (08:39→14:03)
[2016-07-21] MEDS: TIOTROPIUM INHALER/CAPSULE (SPIRIVA) INH SCH (08:46)
[2016-07-21] MEDS ORDERED: ZONE100C4 PO ×2 (09:44→15:11)
[2016-07-21] MEDS ORDERED: LEVO125T3 PO (10:50)
[2016-07-21] MEDS: LevoFLOXacin 500 MG in APPROPRIATE DILUENT 1 EA IV SCH (14:03)
[2016-07-21] MEDS ORDERED: TIOT18INH INH (15:11)
[2016-07-21] MEDS ORDERED: PRED10TA FT (15:11)
[2016-07-21] MEDS ORDERED: PANT40TA2 PO (15:11)
[2016-07-21] MEDS ORDERED: LEVA750T PO (15:11)
--- NOTE | 2016-07-21 15:45 | DSES ---
DATE OF ADMISSION: 07/18/2016 DATE OF DISCHARGE: 07/21/2016 ATTENDING PHYSICIAN: Christo Anthony MD PRIMARY CARE PROVIDER: NEERAJ Burgess REFERRING PHYSICIAN: None. CONSULTING PHYSICIANS: Dr. Partha Noriega and Dr. Giancarlo Hendricks CONDITION ON DISCHARGE: Stable. FINAL DIAGNOSIS: Acute chronic obstructive pulmonary disease (COPD) exacerbation. PROCEDURES: None. HISTORY OF PRESENT ILLNESS: The patient is a 56-year-old female with a past medical history of COPD, on home oxygen at 2 liters, history of gallstones, gastroesophageal reflux disease (GERD), headaches, hypertension, who presented to the emergency room with complaints of shortness of breath. She notes that she was recently admitted at [facility] yesterday for similar episodes and was discharged on 07/17/2016. She notes that she has not been compliant with medications and has been smoking. She has an intermittent productive cough, no fevers or chills. The patient was admitted to medical intensive care unit (MICU) for COPD exacerbation requiring bilevel positive airway pressure (BiPAP). HOSPITAL COURSE: 1. Acute hypercapnic and hypoxic respiratory failure on chronic hypoxic respiratory failure likely secondary to acute COPD exacerbation. Clinically, she has been doing well. No signs of respiratory difficulty. Physical reveals no signs of wheezing. Serial arterial blood gas (ABG) shows signs of improvement in her CO2 retention. She is status post BiPAP. She has been on Solu-Medrol as an inpatient, Advair, Spiriva, DuoNeb, and Levaquin, today is day #4 of Levaquin. Patient will be transitioned to prednisone by mouth on a tapering dose and Levaquin by mouth upon discharge. 2. Headaches. The patient has been evaluated by neurology as an outpatient. She has been advised that this may be migraine or nerve related. She had been on zonisamide as an outpatient and inpatient we have increased her dose of zonisamide to 100 mg twice a day. Fioricet was added for symptomatic relief. She is scheduled for a nerve conduction study as an outpatient and will require followup with neurology. 3. Hypertension. Will continue with diltiazem. 4. GERD. Continue with Protonix and famotidine. 5. Neuropathy. Continue with gabapentin. 6. Deep venous thrombosis (DVT) prophylaxis. She has been on chronic heparin. DISCHARGE MEDICATIONS: The patient is being discharged home with the following: - albuterol/ipratropium solution inhaled every 4 hours - diltiazem 120 mg by mouth daily - gabapentin 600 mg by mouth nightly - Advair 1000 inhaled twice a day - tramadol 50 mg by mouth four times a day as needed for pain New medications which were prescribed include: - levofloxacin 750 mg by mouth daily - levothyroxine (which is her home medication) 125 mcg by mouth daily - Protonix 40 mg by mouth daily - prednisone 10 mg as directed - tiotropium (Spiriva) inhaled one time daily - zonisamide 100 mg by mouth twice a day DISCHARGE INSTRUCTIONS: The patient has been advised to followup with her primary care provider, pulmonology, and neurology within the next 1-2 weeks. She has been advised to call to confirm/schedule appointments. She has been advised to remain compliant with the treatment plan and medications and to return to the emergency room if she experiences any problems. She has been advised to remain abstinent from smoking any type of substance. CODE STATUS: FULL CODE. TIME SPENT ON DISCHARGE: 35 minutes
--- NOTE | 2016-07-22 14:53 | EDDOCDS ---
Physician Documentation [facility] Name: Halima Atkins Age: 56 yrs Sex: Female : 1960 Arrival Date: 07/18/2016 Time: 10:42 Bed 4 Private MD: ELIZABETH CAM Disposition: 07/18/16 12:22 Hospitalization ordered by Karlos Madison for Inpatient Admission. Preliminary diagnosis is Respiratory failure, unspecified with hypercapnia. - Bed requested for M ICU. - Status is Inpatient Admission. ck1 - Condition is Stable. - Problem is an acute exacerbation. - Symptoms are unchanged. Historical: - Allergies: no known allergies; - Home Meds: 1. 2L NC 2. DuoNeb 0.5 mg-3 mg(2.5 mg base)/3 mL Inhl nebu 3 mL 4 times per day 3. Prednisone 60 mg Oral once daily 4. gabapentin 600 mg Oral tab 1 tab daily - PMHx: COPD; Emphysema; Gallstones; GERD; Headaches; Hypertension; nerve damage; - PSHx: Tonsillectomy; Appendectomy; Spinal Fusion; Hip Replacement; Hernia repair; Hysterectomy; Laminectomy; Partial Removal of Small Bowel; - Social history: Smoking status: Patient states former smoker of tobacco. No barriers to communication noted, The patient speaks fluent Tajik, Speaks appropriately for age. - Family history: No immediate family members are acutely ill. - : The pt / caregiver states he / she is not on anticoagulants. Home medication list is obtained from the patient. - Exposure Risk Screening:: None identified. Vital Signs: 07/18 10:44 BP 148 / 96; Pulse 111; Resp 28 S; Temp 96.6; Pulse Ox 88% on 3 lpm NC; Weight 88.45 kg dd6 / 195 lbs (R); Height 5 ft. 9 in. (175.26 cm) (R); Pain 7/10; 11:18 BP 138 / 96 (auto/); hs1 11:19 Pulse 100 MON; Pulse Ox 94% ; hs1 13:54 BP 120 / 77 (auto/); hs1 13:54 Pulse 96 MON; Pulse Ox 94% on BiPAP; hs1 14:24 BP 140 / 102 (auto/); hs1 14:24 Pulse 96 MON; Resp 22; Temp 98.9(T); Pulse Ox 94% ; Pain 3/10; hs1 10:44 Body Mass Index 28.80 (88.45 kg, 175.26 cm) dd6 MDM: 10:58 -Blood Culture (Adults Only), peripheral from different site, or from device/port/PICC sd1 etc. if present ordered. 10:58 Call Respiratory ordered. sd1 10:58 Patient Safety Coordinator/Pulse Ox/q 15 min VS ordered. sd1 10:58 IV Saline Lock ordered. sd1 10:58 Oxygen at 4L/Min NC or Home dosage ordered. sd1 10:58 Rhythm Strip to chart ordered. sd1 11:00 -Arterial Blood Gas Ordered. EDMS 11:00 B-Type Natiuretic Peptide Ordered. EDMS 11:00 Basic Metabolic Profile Ordered. EDMS 11:00 CBC with Diff Ordered. EDMS 11:00 Cardiac Injury Profile Ordered. EDMS 11:00 Troponin Ordered. EDMS 11:00 Lactic Acid (Singh tube on ice) Ordered. EDMS 11:00 -Blood Culture Ordered. EDMS 11:00 Chest, 1 View Ordered. EDMS 11:00 ECG WITH READING ER PHYS+CARDIAG ordered. EDMS 11:05 Call Respiratory complete. lbd 11:05 -Blood Culture (Adults Only), peripheral from different site, or from device/port/PICC lbd etc. if present complete. 11:08 Albuterol-Ipratropium 1 neb Nebulizer every 20 minutes x3 ordered. sd1 11:08 Solu-MEDROL 125 mg IVP once ordered. sd1 11:18 BLOOD CULTURES Ordered. EDMS 11:28 BED REQUEST+ADM ordered. EDMS 11:34 LORazepam 1 mg IVP once ordered. sd1 11:40 LORazepam 1 mg IVP once ordered. hs1 11:49 -Arterial Blood Gas Reviewed. sd1 11:49 CBC with Diff Reviewed. sd1 12:15 Basic Metabolic Profile Reviewed. sd1 12:15 Cardiac Injury Profile Reviewed. sd1 12:15 B-Type Natiuretic Peptide Reviewed. sd1 12:15 Troponin Reviewed. sd1 12:15 Lactic Acid (Singh tube on ice) Reviewed. sd1 12:15 Chest, 1 View Reviewed. sd1 12:32 Written Provider Order was scanned into [employer] and attached to record. lbd 12:43 VENTILATOR SETTINGS ordered. EDMS 12:43 PORTABLE CHEST X-RAY Ordered. EDMS 12:43 PORTABLE CHEST X-RAY Ordered. EDMS 12:43 PORTABLE CHEST X-RAY Ordered. EDMS 12:44 PORTABLE CHEST X-RAY Ordered. EDMS 12:44 PORTABLE CHEST X-RAY Ordered. EDMS 12:44 PORTABLE CHEST X-RAY Ordered. EDMS 12:44 PORTABLE CHEST X-RAY Ordered. EDMS 12:44 PORTABLE CHEST X-RAY Ordered. EDMS 12:45 Admission / Observation Status ordered. EDMS 12:45 NPO DIET ordered. EDMS 12:46 levofloxacin 500 mg IVPB once over 60 mins ordered. hs1 13:05 BIPAP INPATIENT ordered. EDMS 14:05 Financial registration complete. mm15 14:05 [facility] Payment Agreement was scanned into [employer] and attached to record. mm15 07/20 11:42 T-Sheet-- Draft Copy was scanned into [employer] and attached to record. gb Administered Medications: 07/18 11:17 Drug: Albuterol-Ipratropium 1 neb [ipratropium-albuterol 0.5 mg-3 mg(2.5 mg base)/3 mL kt1 nebulization soln (1 neb)] Route: Nebulizer; 11:22 Follow up: Response: Nebulizer completed kt1 11:40 Drug: Solu-MEDROL 125 mg [Solu-Medrol 500 mg intravenous solution (125 mg)] Route: IVP; hs1 Site: left antecubital; 11:40 Drug: LORazepam 1 mg [lorazepam 2 mg/mL injection solution (0.5 mL)] Route: IVP; Site: hs1 left antecubital; 12:15 Drug: Albuterol-Ipratropium 1 neb [ipratropium-albuterol 0.5 mg-3 mg(2.5 mg base)/3 mL kt1 nebulization soln (1 neb)] Route: Nebulizer; 12:46 Drug: levofloxacin 500 mg [levofloxacin 500 mg/100 mL in 5 % dextrose intravenous hs1 piggyback] Route: IVPB; Infused Over: 60 mins; Site: left antecubital; 15:02 Follow up: IV Status: Completed infusion; IV Intake: 100ml hs1 Signatures: Dispatcher [employer] EDMS Brittanie Myles MD MD sd1 Monica Vences, School Operations Manager Unit lbd Zhanna Syed Reg Reg gb Andrey Vazquez RN RN mlb1 Sadia MoraRN RN ck1 Shelia Taylor RN RN hs1 Patricia March mm15 Savita Turner, RASHID MOTTLE LAY UP OPERATOR tanyaf Bernadette Stout kt1 The chart was reviewed and I authenticate all verbal orders and agree with the evaluation and treatment provided.Attachments: 12:32 Written Provider Order lbd 14:05 [facility] Payment Agreement mm15 07/20 11:42 T-Sheet-- Draft Copy gb Chart Complete MTDD
--- NOTE | 2016-07-22 14:53 | EDDOCDS ---
Nurse's Notes [facility] Name: Halima Atkins Age: 56 yrs Sex: Female : 1960 Arrival Date: 07/18/2016 Time: 10:42 Bed 4 Private MD: ELIZABETH CAM Diagnosis: Respiratory failure, unspecified with hypercapnia Presentation: 07/18 10:48 Presenting complaint: Patient states: Chest pain and SOB began on 07/09/16 [address] discharged yesterday. Adult Sepsis Screening: The patient does not have new or worsening altered mentation. Patient has a respiratory rate of greater than or equal to 22 (1 point). Systolic blood pressure is greater than 100. Patient has a qSOFA score of 0- Negative Sepsis Screen. Suicide/Homicide risk assessment- the patient denies having any suicidal and/or homicidal ideations and does not present with any other emotional, behavioral or mental health complaints. Status: Patient is not a readers' advisory service librarian or dependent. Transition of care: patient was not received from another setting of care. 10:48 Method Of Arrival: Walkin/Carried/Asstd [facility] 10:48 Acuity: MADALYN Level 2 [facility] Triage Assessment: 10:51 General: Appears distressed, Behavior is appropriate for age, cooperative. Pain: b1 Location: head and chest Pain currently is 10 out of 10 on a pain scale. HIV screening NA for this visit Offered previously. Respiratory: Onset: The symptoms/episode began/occurred gradually, Respiratory effort is labored. Historical: - Allergies: no known allergies; - Home Meds: 1. 2L NC 2. DuoNeb 0.5 mg-3 mg(2.5 mg base)/3 mL Inhl nebu 3 mL 4 times per day 3. Prednisone 60 mg Oral once daily 4. gabapentin 600 mg Oral tab 1 tab daily - PMHx: COPD; Emphysema; Gallstones; GERD; Headaches; Hypertension; nerve damage; - PSHx: Tonsillectomy; Appendectomy; Spinal Fusion; Hip Replacement; Hernia repair; Hysterectomy; Laminectomy; Partial Removal of Small Bowel; - Social history: Smoking status: Patient states former smoker of tobacco. No barriers to communication noted, The patient speaks fluent Hong Konger, Speaks appropriately for age. - Family history: No immediate family members are acutely ill. - : The pt / caregiver states he / she is not on anticoagulants. Home medication list is obtained from the patient. - Exposure Risk Screening:: None identified. Screenin:28 Screening information is obtained from the patient. Fall risk: No risks identified. hs1 Assistance ADL's: requires no assistance with activities of daily living. Abuse/DV Screen: The patient / caregiver reports he/she is: not in a situation that causes fear, pain or injury. Nutritional screening: No deficits noted. Advance Directives: There is no active DNR order. home support is adequate. Assessment: 11:25 General: Appears in no apparent distress, Behavior is anxious. Pain: Denies pain. hs1 Cardiovascular: Rhythm is sinus rhythm No ectopy. Cardiovascular: Capillary refill is sluggish Chest pain is denied. Respiratory: Airway is patent Respiratory effort is labored, respiratory in to assist patient onto BiPap. Breath sounds are diminished bilaterally. Breath sounds with wheezes bilaterally. Derm: Skin is normal. 12:25 General: Appears in no apparent distress, Behavior is appropriate for age, cooperative, hs1 Pt resting Zithromax administered at present per order. Pt complaining of slight headache 09/21 and MD Madison aware. . 13:20 General: Appears in no apparent distress, Behavior is appropriate for age, cooperative, hs1 pt asking what happened to her and she was told that she was hypercarbic and that's why she doesn't remember much when she first got here. Pt aware of recent transfer to floor. . 14:37 General: Appears in no apparent distress, comfortable, Behavior is appropriate for age, hs1 cooperative, Pt is asking to use restroom before admission to floor. Pt being assisted to bedside commode by aide. Daughter present at bedside and no other needs noted. . 15:00 General: Appears Pt refusing BIPAP at present until heading upstairs. Pt accomodated hs1 with bedpan and then commode and then patient took mask off and refused mask until ICU. Pt asking for something to drink and medication for headache. . Vital Signs: 10:44 BP 148 / 96; Pulse 111; Resp 28 S; Temp 96.6; Pulse Ox 88% on 3 lpm NC; Weight 88.45 kg dd6 (R); Height 5 ft. 9 in. (175.26 cm) (R); Pain 7/10; 11:18 BP 138 / 96 (auto/); hs1 11:19 Pulse 100 MON; Pulse Ox 94% ; hs1 13:54 BP 120 / 77 (auto/); hs1 13:54 Pulse 96 MON; Pulse Ox 94% on BiPAP; hs1 14:24 BP 140 / 102 (auto/); hs1 14:24 Pulse 96 MON; Resp 22; Temp 98.9(T); Pulse Ox 94% ; Pain 3/10; hs1 10:44 Body Mass Index 28.80 (88.45 kg, 175.26 cm) dd6 Vitals: 10:44 Log In Time: July 18, 2016 at 10:42. dd6 ED Course: 10:43 Patient visited by Vincenzo Plaza PCA. dd6 10:43 NO PRIMARY PHYSICIAN, . is Private Physician. dd6 10:43 Patient moved to Waiting dd6 10:44 BODY, ELIZABETH is Private Physician. dd6 10:48 Patient visited by Andrey Vazquez, CRYSTAL. mlb1 10:49 Triage Initiated mlb1 10:56 Patient moved to 19 mlb1 11:00 Brittanie Myles MD is Attending Physician. sd1 11:00 Patient visited by Brittanie Myles MD. sd1 11:12 Patient moved to 4 jlf 11:17 -Arterial Blood Gas Sent. kt1 11:21 Patient visited by Savita Turner PCA. jlf 11:21 EKG done. (by ED staff). Reviewed by Brittanie Myles MD. jlf 11:22 Patient visited by Savita Turner PCA. jlf 11:33 Inserted saline lock: 18 gauge in left antecubital area and blood collected. The mb9 patient tolerated the procedure well. 11:53 Patient visited by Savita Turner PCA. jlf 11:53 Chest, 1 View Returned. EDMS 12:17 Patient visited by Savita Turner PCA. jlf 12:22 Karlos Madison DO is Hospitalizing Provider. sd1 12:28 The patient / caregiver is instructed regarding the plan of care and ED course. hs1 12:32 Written Provider Order was scanned into [employer] and attached to record. lbd 12:46 BLOOD CULTURES Sent. hs1 14:05 [facility] Payment Agreement was scanned into [employer] and attached to record. mm15 14:39 No procedures done that require assistance. hs1 07/20 11:42 T-Sheet-- Draft Copy was scanned into [employer] and attached to record. gb Administered Medications: 07/18 11:17 Drug: Albuterol-Ipratropium 1 neb [ipratropium-albuterol 0.5 mg-3 mg(2.5 mg base)/3 mL kt1 nebulization soln (1 neb)] Route: Nebulizer; 11:22 Follow up: Response: Nebulizer completed kt1 11:40 Drug: Solu-MEDROL 125 mg [Solu-Medrol 500 mg intravenous solution (125 mg)] Route: IVP; hs1 Site: left antecubital; 11:40 Drug: LORazepam 1 mg [lorazepam 2 mg/mL injection solution (0.5 mL)] Route: IVP; Site: hs1 left antecubital; 12:15 Drug: Albuterol-Ipratropium 1 neb [ipratropium-albuterol 0.5 mg-3 mg(2.5 mg base)/3 mL kt1 nebulization soln (1 neb)] Route: Nebulizer; 12:46 Drug: levofloxacin 500 mg [levofloxacin 500 mg/100 mL in 5 % dextrose intravenous hs1 piggyback] Route: IVPB; Infused Over: 60 mins; Site: left antecubital; 15:02 Follow up: IV Status: Completed infusion; IV Intake: 100ml hs1 Intake: 15:02 IV: 100.00ml; Total: 100.00ml. hs1 RT: 11:17 ABG's drawn from right radial artery pressure held for 5 minutes no bleeding noted kt1 pressure bandage applied specimen sent pt. tolerated well. 11:30 BIPAP: Inspiratory Pressure: 12, Expiratory Pressure: 6, Backup Rate: 10, FiO2: 40%, kt1 Full face fask. 14:53 BIPAP:. O2 via Pt refusing bipap at this time until she goes up to ICU. Reassurance sd7 given on importance of bipap and reason for bipap. Pt adament that she is not wearing the mask right now. Pt placed on 6LNC at this time. Order Results: Lab Order: -Arterial Blood Gas; SPEC'M 07/18/16 11:09 Test: ABG pH (ARTERIAL); Value: 7.302; Range: 7.350-7.450; Abnormal: Below low normal; Units: UNITS; Status: F Test: ABG PARTIAL PRESSURE CO2; Value: 77.2; Range: 35.0-45.0; Abnormal: Above upper panic limits; Units: mmHg; Status: F Test: ABG PARTIAL PRESSURE O2; Value: 68.1; Range: 75.0-100.0; Abnormal: Below low normal; Units: mmHg; Status: F Test: ABG TOTAL CO2; Value: 39.7; Range: 22.0-29.0; Abnormal: Above high normal; Units: MEQ/L; Status: F Test: ABG HCO3; Value: 37.3; Range: 22.0-26.0; Abnormal: Above high normal; Units: MEQ/L; Status: F Test: ABG BASE EXCESS; Value: 7.4; Range: -2.0-2.0; Abnormal: Above high normal; Status: F Test: ABG STANDARD HCO3; Value: 31.1; Range: 22.0-26.0; Abnormal: Above high normal; Units: MEQ/L; Status: F Test: ABG O2 SATURATION; Value: 93.6; Range: 95.0-99.0; Abnormal: Below low normal; Units: %; Status: F Test: ABG DEVICE; Value: NASAL TON; Status: F Lab Order: B-Type Natiuretic Peptide; [facility] 07/18/16 11:09 Test: BRAIN NATRIURETIC PEPTIDE; Value: 49.6; Range: <100; Units: PG/ML; Status: F Lab Order: Basic Metabolic Profile; [facility] 07/18/16 11:09 Test: GLUCOSE, FASTING; Value: 90; Range: 70-105; Units: MG/DL; Status: F Test: BLOOD UREA NITROGEN; Value: 18; Range: 7-18; Units: MG/DL; Status: F Test: CREATININE FOR GFR; Value: 0.53; Range: 0.55-1.02; Abnormal: Below low normal; Units: MG/DL; Status: F Test: GLOMERULAR FILTRATION RATE; Value: > 60.0; Range: >51; Status: F Test: SODIUM LEVEL; Value: 143; Range: 136-145; Units: MEQ/L; Status: F Test: POTASSIUM SERUM; Value: 3.8; Range: 3.5-5.1; Units: MEQ/L; Status: F Test: CHLORIDE LEVEL; Value: 97; Range: 98-107; Abnormal: Below low normal; Units: MEQ/L; Status: F Test: CARBON DIOXIDE LEVEL; Value: 45; Range: 21-32; Abnormal: Above high normal; Units: MEQ/L; Status: F Test: ANION GAP; Value: 1; Range: 8-16; Abnormal: Below low normal; Units: MEQ/L; Status: F Test: CALCIUM LEVEL; Value: 9.9; Range: 8.5-10.1; Units: MG/DL; Status: F Test Note: ; Units are mL/min/1.73 m2 Chronic Kidney Disease Staging per NKF: Stage I & II GFR >=60 Normal to Mildly Decreased Stage III GFR 30-59 Moderately Decreased Stage IV GFR 15-29 Severely Decreased Stage V GFR <15 Very Little GFR Left ESRD GFR <15 on FRAME TABLE OPERATOR HELPER Lab Order: CBC with Diff; SPEC'M 07/18/16 11:09 Test: WHITE BLOOD COUNT; Value: 11.3; Range: 4.0-10.0; Abnormal: Above high normal; Units: K/mm3; Status: F Test: RED BLOOD COUNT; Value: 5.26; Range: 4.00-5.40; Units: M/mm3; Status: F Test: HEMOGLOBIN; Value: 15.3; Range: 12.0-16.0; Units: g/dl; Status: F Test: HEMATOCRIT; Value: 47.4; Range: 36.0-47.0; Abnormal: Above high normal; Units: %; Status: F Test: MEAN CORPUSCULAR VOLUME; Value: 90.1; Range: 80.0-96.0; Units: fl; Status: F Test: MEAN CORPUSCULAR HEMOGLOBIN; Value: 29.2; Range: 27.0-33.0; Units: pg; Status: F Test: MEAN CORPUSCULAR HGB CONC; Value: 32.4; Range: 32.0-36.5; Units: g/dl; Status: F Test: RED CELL DISTRIBUTION WIDTH; Value: 14.5; Range: 11.5-14.5; Units: %; Status: F Test: PLATELET COUNT, AUTOMATED; Value: 232; Range: 150-450; Units: k/mm3; Status: F Test: NEUTROPHILS %; Value: 74.0; Range: 36.0-66.0; Abnormal: Above high normal; Units: %; Status: F Test: LYMPH %; Value: 15.3; Range: 24.0-44.0; Abnormal: Below low normal; Units: %; Status: F Test: MONO %; Value: 7.1; Range: 0.0-5.0; Abnormal: Above high normal; Units: %; Status: F Test: EOS %; Value: 1.2; Range: 0.0-3.0; Units: %; Status: F Test: BASO %; Value: 0.7; Range: 0.0-1.0; Units: %; Status: F Test: LARGE UNSTAINED CELL %; Value: 1.6; Range: 0.0-4.0; Units: %; Status: F Test: NEUTROPHILS #; Value: 8.4; Range: 1.8-7.7; Abnormal: Above high normal; Units: K/mm3; Status: F Test: LYMPH #; Value: 1.9; Range: 1.5-4.5; Units: K/mm3; Status: F Test: MONO #; Value: 0.8; Range: 0.0-0.8; Units: K/mm3; Status: F Test: EOS #; Value: 0.1; Range: 0.0-0.50; Units: K/mm3; Status: F Test: BASO #; Value: 0.1; Range: 0.0-0.2; Units: K/mm3; Status: F Test: LARGE UNSTAINED CELL #; Value: 0.2; Range: 0.0-0.4; Units: K/mm3; Status: F Lab Order: Cardiac Injury Profile; SPEC'M 07/18/16 11:09 Test: CPK CREATINE PHOSPHOKINASE; Value: 42; Range: 26-192; Units: U/L; Status: F Test: CK-MB VALUE MASS; Value: 3.9; Range: 0.0-3.6; Abnormal: Above high normal; Units: NG/ML; Status: F Test: MB/CK RELATIVE INDEX; Value: 9.28; Range: < OR =4; Abnormal: Above high normal; Status: F Test Note: ; DIAGNOSIS CRITERIA MMB ng/ml Relative Index (RI) NON-AMI < or = 5 N/A S[place] > 5 < or = 4 AMI > 5 > 4 Lab Order: Troponin; SPEC'M 07/18/16 11:09 Test: TROPONIN I; Value: < 0.02; Range: < 0.10; Units: NG/ML; Status: F Test Note: ; Troponin I Reference Interval for Sanergy LOCI: 99th Percentile= 0.00-0.045 ng/ml Risk Stratification: <= 0.10 ng/ml Decreased Risk for Adverse Clinical Events. 0.10-1.50 ng/ml Increased Risk for Adverse Clinical Events. Evaluation of additional criterion and/or repeat testing in 2-6 hours is suggested to rule out myocardial damage. >= 1.50 ng/ml Indicative of Myocardial Injury. Lab Order: Lactic Acid (Singh tube on ice); SPEC'M 07/18/16 11:09 Test: LACTIC ACID LEVEL, LACTATE; Value: 0.9; Range: 0.4-2.0; Units: MMOL/L; Status: F Radiology Order: Chest, 1 View Test: Chest, 1 View REASON FOR EXAMINATION: Shortness of Breath; SINGLE VIEW CHEST:; ; AP portable view of the chest is performed and compared to prior study of; 01/04/2016. I see no acute infiltrate with no change since prior study. Heart; is upper limits of normal in size. Mediastinal silhouette is unchanged. The; visualized osseous structures appear intact.; ; IMPRESSION:; No acute infiltrate.; ; Unreviewed; Outcome: 12:22 Decision to Hospitalize by Provider. sd1 15:01 Discharge Assessment: Patient awake, alert and oriented x 3. No cognitive and/or hs1 functional deficits noted. Patient verbalized understanding of disposition instructions. patient administered narcotics - yes. Patient was admitted to the hospital or transferred to another facility. The following High Risk Discharge criteria are identified: None. Admitted to ICU accompanied by nurse, accompanied by tech, family with patient, via stretcher, with oxygen, on monitor, with chart. critical. CT Study completed. Property sent home with patient. 15:05 Patient left the ED. ck1 Signatures: Dispatcher [employer] Brittanie Myles MD MD sd1 Monica Vences, Energy Sales Broker Unit lbd Zhanna Syed, Reg Reg gb Andrey Vazquez RN RN mlb1 Bernadette Stout kt1 Sadia MoraRN RN ck1 Vincenzo Plaza, TRANSIT PLANNING MANAGER TRANSIT PLANNING MANAGER dd6 Shelia Taylor RN RN hs1 Patricia March mm15 Savita Turner, TRANSIT PLANNING MANAGER TRANSIT PLANNING MANAGER jlf Rasheeda Soto,RT RT sd7 Andrey Florentino RN RN mb9 Corrections: (The following items were deleted from the chart) 11:06 10:48 Acuity: MADALYN Level 3 mlb1 mlb1 Chart Complete MTDD
--- NOTE | 2016-07-22 14:53 | EDDOCDS ---
Physician Documentation [facility] Name: Halima Atkins Age: 56 yrs Sex: Female : 1960 Arrival Date: 07/18/2016 Time: 10:42 Bed 4 Private MD: ELIZABETH CAM Disposition: 07/18/16 12:22 Hospitalization ordered by Karlos Madison for Inpatient Admission. Preliminary diagnosis is Respiratory failure, unspecified with hypercapnia. - Bed requested for M ICU. - Status is Inpatient Admission. ck1 - Condition is Stable. - Problem is an acute exacerbation. - Symptoms are unchanged. Historical: - Allergies: no known allergies; - Home Meds: 1. 2L NC 2. DuoNeb 0.5 mg-3 mg(2.5 mg base)/3 mL Inhl nebu 3 mL 4 times per day 3. Prednisone 60 mg Oral once daily 4. gabapentin 600 mg Oral tab 1 tab daily - PMHx: COPD; Emphysema; Gallstones; GERD; Headaches; Hypertension; nerve damage; - PSHx: Tonsillectomy; Appendectomy; Spinal Fusion; Hip Replacement; Hernia repair; Hysterectomy; Laminectomy; Partial Removal of Small Bowel; - Social history: Smoking status: Patient states former smoker of tobacco. No barriers to communication noted, The patient speaks fluent Sami, Speaks appropriately for age. - Family history: No immediate family members are acutely ill. - : The pt / caregiver states he / she is not on anticoagulants. Home medication list is obtained from the patient. - Exposure Risk Screening:: None identified. Vital Signs: 07/18 10:44 BP 148 / 96; Pulse 111; Resp 28 S; Temp 96.6; Pulse Ox 88% on 3 lpm NC; Weight 88.45 kg dd6 / 195 lbs (R); Height 5 ft. 9 in. (175.26 cm) (R); Pain 7/10; 11:18 BP 138 / 96 (auto/); hs1 11:19 Pulse 100 MON; Pulse Ox 94% ; hs1 13:54 BP 120 / 77 (auto/); hs1 13:54 Pulse 96 MON; Pulse Ox 94% on BiPAP; hs1 14:24 BP 140 / 102 (auto/); hs1 14:24 Pulse 96 MON; Resp 22; Temp 98.9(T); Pulse Ox 94% ; Pain 3/10; hs1 10:44 Body Mass Index 28.80 (88.45 kg, 175.26 cm) dd6 MDM: 10:58 -Blood Culture (Adults Only), peripheral from different site, or from device/port/PICC sd1 etc. if present ordered. 10:58 Call Respiratory ordered. sd1 10:58 Iron Installer/Pulse Ox/q 15 min VS ordered. sd1 10:58 IV Saline Lock ordered. sd1 10:58 Oxygen at 4L/Min NC or Home dosage ordered. sd1 10:58 Rhythm Strip to chart ordered. sd1 11:00 -Arterial Blood Gas Ordered. EDMS 11:00 B-Type Natiuretic Peptide Ordered. EDMS 11:00 Basic Metabolic Profile Ordered. EDMS 11:00 CBC with Diff Ordered. EDMS 11:00 Cardiac Injury Profile Ordered. EDMS 11:00 Troponin Ordered. EDMS 11:00 Lactic Acid (Singh tube on ice) Ordered. EDMS 11:00 -Blood Culture Ordered. EDMS 11:00 Chest, 1 View Ordered. EDMS 11:00 ECG WITH READING ER PHYS+CARDIAG ordered. EDMS 11:05 Call Respiratory complete. lbd 11:05 -Blood Culture (Adults Only), peripheral from different site, or from device/port/PICC lbd etc. if present complete. 11:08 Albuterol-Ipratropium 1 neb Nebulizer every 20 minutes x3 ordered. sd1 11:08 Solu-MEDROL 125 mg IVP once ordered. sd1 11:18 BLOOD CULTURES Ordered. EDMS 11:28 BED REQUEST+ADM ordered. EDMS 11:34 LORazepam 1 mg IVP once ordered. sd1 11:40 LORazepam 1 mg IVP once ordered. hs1 11:49 -Arterial Blood Gas Reviewed. sd1 11:49 CBC with Diff Reviewed. sd1 12:15 Basic Metabolic Profile Reviewed. sd1 12:15 Cardiac Injury Profile Reviewed. sd1 12:15 B-Type Natiuretic Peptide Reviewed. sd1 12:15 Troponin Reviewed. sd1 12:15 Lactic Acid (Singh tube on ice) Reviewed. sd1 12:15 Chest, 1 View Reviewed. sd1 12:32 Written Provider Order was scanned into [employer] and attached to record. lbd 12:43 VENTILATOR SETTINGS ordered. EDMS 12:43 PORTABLE CHEST X-RAY Ordered. EDMS 12:43 PORTABLE CHEST X-RAY Ordered. EDMS 12:43 PORTABLE CHEST X-RAY Ordered. EDMS 12:44 PORTABLE CHEST X-RAY Ordered. EDMS 12:44 PORTABLE CHEST X-RAY Ordered. EDMS 12:44 PORTABLE CHEST X-RAY Ordered. EDMS 12:44 PORTABLE CHEST X-RAY Ordered. EDMS 12:44 PORTABLE CHEST X-RAY Ordered. EDMS 12:45 Admission / Observation Status ordered. EDMS 12:45 NPO DIET ordered. EDMS 12:46 levofloxacin 500 mg IVPB once over 60 mins ordered. hs1 13:05 BIPAP INPATIENT ordered. EDMS 14:05 Financial registration complete. mm15 14:05 [facility] Payment Agreement was scanned into [employer] and attached to record. mm15 07/20 11:42 T-Sheet-- Draft Copy was scanned into [employer] and attached to record. gb Administered Medications: 07/18 11:17 Drug: Albuterol-Ipratropium 1 neb [ipratropium-albuterol 0.5 mg-3 mg(2.5 mg base)/3 mL kt1 nebulization soln (1 neb)] Route: Nebulizer; 11:22 Follow up: Response: Nebulizer completed kt1 11:40 Drug: Solu-MEDROL 125 mg [Solu-Medrol 500 mg intravenous solution (125 mg)] Route: IVP; hs1 Site: left antecubital; 11:40 Drug: LORazepam 1 mg [lorazepam 2 mg/mL injection solution (0.5 mL)] Route: IVP; Site: hs1 left antecubital; 12:15 Drug: Albuterol-Ipratropium 1 neb [ipratropium-albuterol 0.5 mg-3 mg(2.5 mg base)/3 mL kt1 nebulization soln (1 neb)] Route: Nebulizer; 12:46 Drug: levofloxacin 500 mg [levofloxacin 500 mg/100 mL in 5 % dextrose intravenous hs1 piggyback] Route: IVPB; Infused Over: 60 mins; Site: left antecubital; 15:02 Follow up: IV Status: Completed infusion; IV Intake: 100ml hs1 Signatures: Dispatcher [employer] EDMS Brittanie Myles MD MD sd1 Monica Vences, Postal Worker Unit lbd Zhanna Syed Reg Reg gb Andrey Vazquez RN RN mlb1 Sadia MoraRN RN ck1 Shelia Taylor RN RN hs1 Patricia March mm15 Savita Turner, RASHID DOMESTIC FREIGHT FORWARDER tanyaf Bernadette Stout kt1 The chart was reviewed and I authenticate all verbal orders and agree with the evaluation and treatment provided.Attachments: 12:32 Written Provider Order lbd 14:05 [facility] Payment Agreement mm15 07/20 11:42 T-Sheet-- Draft Copy gb Chart Complete MTDD
== END 2016-07-21 15:46 | disposition home or self-care (01) | DRG 189 ==
LOC: M ED 10:42 → M ED INP 12:37 → M ICU 15:06 → M MSPAV 07-19 11:34
PROVIDERS: ADMIT Internal Medicine; ATTEND Internal Medicine
PROC: 5A09357 Assistance with Respiratory Ventilation, Less than 24 Consecutive Hours, Continuous Positive Airway Pressure (ICD-10-PCS; principal; 2016-07-18)
DX: J96.21 Acute and chronic respiratory failure with hypoxia (principal); J44.9 Chronic obstructive pulmonary disease, unspecified; I10 Essential (primary) hypertension; J96.22 Acute and chronic respiratory failure with hypercapnia; Z99.81 Dependence on supplemental oxygen; R51 Headache; K21.9 Gastro-esophageal reflux disease without esophagitis; G62.9 Polyneuropathy, unspecified; Z79.01 Long term (current) use of anticoagulants; Z79.899 Other long term (current) drug therapy; Z90.710 Acquired absence of both cervix and uterus; Z98.0 Intestinal bypass and anastomosis status; Z87.891 Personal history of nicotine dependence; Z91.14 Patient's other noncompliance with medication regimen